=== PATIENT | female | born 1970 | race Caucasian/White ===

== ENCOUNTER 2018-03-19 14:28 | Emergency (ER) | payer OTHER ==
[~2018-03-19] VITALS: Ht 154.9 cm; Wt 70.8 kg
[~2018-03-19 14:28] MED LIST: 'XANAX1 MG PO; CYCLOBENZAPRINE10 MG PO; FLEXERIL10 MG PO; HUMALOG100 UNIT/1 SQ; LANTUS100 U/ML SC; NEURONTIN300 MG PO; NOVAPLUS V0.09 MG/Ac IH; PREDNISONE10 MG PO; QUETIAPINE FUM100 M3 PO; SERTRALINE HYD100 MG PO; VIBRAMYCIN100 MG PO; VICODIN 5/500 505 MG PO
[2018-03-19] MEDS ORDERED: NAPROSYN500 MG PO (14:59)
[2018-03-19] MEDS ORDERED: CAPTOPRIL25 MG PO (16:11)
== END 2018-03-19 17:15 | disposition home or self-care (01) ==
LOC: ED 14:28
DX: S93.601A Unspecified sprain of right foot, initial encounter (principal); R03.0 Elevated blood-pressure reading, without diagnosis of hypertension; Z79.4 Long term (current) use of insulin; Z79.899 Other long term (current) drug therapy; Z88.1 Allergy status to other antibiotic agents; Z88.8 Allergy status to other drugs, medicaments and biological substances; X50.1XXA Overexertion from prolonged static or awkward postures, initial encounter; Y93.89 Activity, other specified; Y92.89 Other specified places as the place of occurrence of the external cause; Y99.9 Unspecified external cause status

== ENCOUNTER 2018-04-18 13:02 | Emergency (ER) | payer OTHER ==
[~2018-04-18] VITALS: Wt 70.8 kg
[~2018-04-18 13:02] MED LIST changes: +CAPTOPRIL25 MG PO; +NAPROSYN500 MG PO
[2018-04-18] MEDS ORDERED: MYCOLOG CREAM 115 GM T (13:56)
[2018-04-18] MEDS ORDERED: NORCO 5-325 TA1 EACH PO (13:56)
[2018-04-18] MEDS ORDERED: FLUCONAZOLE100 MG PO (13:56)
== END 2018-04-18 14:22 | disposition home or self-care (01) ==
LOC: ED 13:02
DX: B37.2 Candidiasis of skin and nail (principal); F17.200 Nicotine dependence, unspecified, uncomplicated; Z88.1 Allergy status to other antibiotic agents; Z88.8 Allergy status to other drugs, medicaments and biological substances; Z79.899 Other long term (current) drug therapy; Z79.4 Long term (current) use of insulin

== ENCOUNTER 2018-04-22 09:32 | Emergency (ER) | payer OTHER ==
[~2018-04-22] VITALS: Ht 154.9 cm; Wt 70.8 kg
[~2018-04-22 09:32] MED LIST changes: +FLUCONAZOLE100 MG PO; +MYCOLOG CREAM 115 GM T; +NORCO 5-325 TA1 EACH PO
[2018-04-22] MEDS ORDERED: MYCOLOG CREAM 115 GM T (09:48)
[2018-04-22] MEDS ORDERED: NORCO 10-325 T1 EACH PO (10:23)
== END 2018-04-22 10:45 | disposition home or self-care (01) ==
LOC: ED 09:32
DX: B37.2 Candidiasis of skin and nail (principal); Z88.8 Allergy status to other drugs, medicaments and biological substances; Z79.899 Other long term (current) drug therapy

== ENCOUNTER 2018-05-30 18:59 | Emergency (ER) | payer OTHER ==
[~2018-05-30] VITALS: Ht 152.4 cm; Wt 72.6 kg
[~2018-05-30 18:59] MED LIST changes: +LANTUS SOL100 UNIT/1 SQ; -LANTUS100 U/ML SC; +NORCO 10-325 T1 EACH PO
[2018-05-30 19:55] LABS: BASO % 0.3 % (0.0-1.0); EOS # 0.3 10*3/uL (0.0-0.4); EOS % 2.7 % (1.0-4.0); HEMATOCRIT 31.3 % (37.0-47.0); HEMOGLOBIN 9.8 g/dl (12.0-16.0); LYMPH # 1.8 10*3/uL (1.3-4.4); LYMPH % 18.2 % (27.0-41.0); MEAN CELL VOLUME 87.9 fl (81.0-99.0); MEAN CORPUSCULAR HGB 27.5 pg (27.0-31.0); MEAN CORPUSCULAR HGB CONC 31.3 g/dl (33.0-37.0); MEAN PLATELET VOLUME 8.9 fl (9.6-12.3); MONO # 0.5 10*3/uL (0.1-1.0); MONO % 5.3 % (3.0-9.0); NEUT # 7.2 10*3/uL (2.3-7.9); NEUT % 73.3 % (47.0-73.0); PLATELET COUNT AUTOMATED 439 10*3/uL (130-400); RED BLOOD COUNT 3.56 10*6/uL (4.10-5.10); RED CELL DISTRI WIDTH 14.4 % (0-14.5); WHITE BLOOD COUNT 9.8 10*3/uL (4.8-10.8)
[2018-05-30 20:10] LABS: ALBUMIN 2.2 gm/dl (3.1-4.5); ALKALINE PHOSPHATASE 212 U/L (45-117); BUN 9 mg/dl (7-24); CHLORIDE 97 mmol/L (98-107); CREATININE 0.85 mg/dL (0.55-1.02); POTASSIUM 3.9 mmol/L (3.5-5.1); SGOT/AST 8 IU/L (3-35); SGPT/ALT 8 U/L (12-78); SODIUM 136 mmol/L (136-145); TOTAL PROTEIN 7.3 gm/dL (6.4-8.2)
[2018-05-30] MEDS ORDERED: SEPTDS PO (20:37)
[2018-05-30] MEDS ORDERED: CLINDAMYCIN HC300 MG PO (20:39)
[2018-05-30] MEDS ORDERED: Bactroban Oint22 GM T (20:48)
[2018-05-30] MEDS ORDERED: HIBICLENS118 ML T (20:48)
[2018-05-30] MEDS ORDERED: NORCO 5-325 TA1 EACH PO (21:16)
[2018-05-30] MEDS ORDERED: DIFLUCAN150 MG PO (21:19)
== END 2018-05-30 22:40 | disposition home or self-care (01) ==
LOC: ED 18:59
PROVIDERS: Nurse Practitioner
DX: L02.214 Cutaneous abscess of groin (principal); Z79.899 Other long term (current) drug therapy; Z88.1 Allergy status to other antibiotic agents; Z86.14 Personal history of Methicillin resistant Staphylococcus aureus infection

== ENCOUNTER 2018-06-04 18:06 | Emergency (ER) | payer OTHER ==
[~2018-06-04] VITALS: Ht 152.4 cm; Wt 73.5 kg
[~2018-06-04 18:06] MED LIST changes: +Bactroban Oint22 GM T; +CLINDAMYCIN HC300 MG PO; +DIFLUCAN150 MG PO; +HIBICLENS118 ML T; +SEPTDS PO
[2018-06-04 19:08] LABS: BASO % 0.6 % (0.0-1.0); EOS # 0.3 10*3/uL (0.0-0.4); EOS % 3.6 % (1.0-4.0); HEMATOCRIT 34.1 % (37.0-47.0); HEMOGLOBIN 10.6 g/dl (12.0-16.0); LYMPH # 1.8 10*3/uL (1.3-4.4); LYMPH % 25.7 % (27.0-41.0); MEAN CELL VOLUME 87.9 fl (81.0-99.0); MEAN CORPUSCULAR HGB 27.3 pg (27.0-31.0); MEAN CORPUSCULAR HGB CONC 31.1 g/dl (33.0-37.0); MEAN PLATELET VOLUME 8.9 fl (9.6-12.3); MONO # 0.5 10*3/uL (0.1-1.0); MONO % 6.7 % (3.0-9.0); NEUT # 4.5 10*3/uL (2.3-7.9); NEUT % 63.1 % (47.0-73.0); PLATELET COUNT AUTOMATED 383 10*3/uL (130-400); RED BLOOD COUNT 3.88 10*6/uL (4.10-5.10); RED CELL DISTRI WIDTH 14.6 % (0-14.5); WHITE BLOOD COUNT 7.1 10*3/uL (4.8-10.8)
[2018-06-04 19:26] LABS: ALBUMIN 2.5 gm/dl (3.1-4.5); ALKALINE PHOSPHATASE 523 U/L (45-117); BUN 7 mg/dl (7-24); CHLORIDE 103 mmol/L (98-107); CREATININE 1.31 mg/dL (0.55-1.02); POTASSIUM 3.8 mmol/L (3.5-5.1); SGOT/AST 9 IU/L (3-35); SGPT/ALT 21 U/L (12-78); SODIUM 141 mmol/L (136-145); TOTAL PROTEIN 7.7 gm/dL (6.4-8.2)
[2018-06-04 19:27] LABS: TROPONIN I < 0.015 ng/ml (<0.045)
[2018-06-04] MEDS ORDERED: SEPTDS PO (20:37)
[2018-06-04] MEDS ORDERED: CIPRO500 MG PO (20:37)
[2018-06-04] MEDS ORDERED: DIFLUCAN150 MG PO (20:37)
[2018-06-04] MEDS ORDERED: NORCO 5-325 TA1 EACH PO (20:39)
== END 2018-06-04 21:09 | disposition left against medical advice (07) ==
LOC: ED 18:06
PROVIDERS: Nurse Practitioner Family
DX: L02.214 Cutaneous abscess of groin (principal); Z88.1 Allergy status to other antibiotic agents; Z79.899 Other long term (current) drug therapy

== ENCOUNTER 2018-06-08 16:48 | Emergency (ER) | payer OTHER ==
[~2018-06-08] VITALS: Ht 154.9 cm; Wt 73.5 kg
[~2018-06-08 16:48] MED LIST changes: +CIPRO500 MG PO
[2018-06-08 17:30] LABS: BASO # 0.1 10*3/uL (0.0-0.1); BASO % 0.6 % (0.0-1.0); EOS # 0.3 10*3/uL (0.0-0.4); EOS % 2.8 % (1.0-4.0); HEMATOCRIT 34.4 % (37.0-47.0); HEMOGLOBIN 10.7 g/dl (12.0-16.0); LYMPH # 2.3 10*3/uL (1.3-4.4); LYMPH % 25.6 % (27.0-41.0); MEAN CELL VOLUME 86.4 fl (81.0-99.0); MEAN CORPUSCULAR HGB 26.9 pg (27.0-31.0); MEAN CORPUSCULAR HGB CONC 31.1 g/dl (33.0-37.0); MEAN PLATELET VOLUME 8.7 fl (9.6-12.3); MONO # 0.5 10*3/uL (0.1-1.0); NEUT # 5.9 10*3/uL (2.3-7.9); NEUT % 65.6 % (47.0-73.0); PLATELET COUNT AUTOMATED 335 10*3/uL (130-400); RED BLOOD COUNT 3.98 10*6/uL (4.10-5.10); RED CELL DISTRI WIDTH 14.1 % (0-14.5)
[2018-06-08 17:46] LABS: ALBUMIN 2.9 gm/dl (3.1-4.5); ALKALINE PHOSPHATASE 320 U/L (45-117); BUN 9 mg/dl (7-24); CHLORIDE 93 mmol/L (98-107); CREATININE 0.96 mg/dL (0.55-1.02); POTASSIUM 4.1 mmol/L (3.5-5.1); SGOT/AST 9 IU/L (3-35); SGPT/ALT 12 U/L (12-78); SODIUM 130 mmol/L (136-145); TOTAL PROTEIN 8.2 gm/dL (6.4-8.2)
== END 2018-06-08 22:06 | disposition short-term general hospital (02) ==
LOC: ED 16:48
PROVIDERS: Nurse Practitioner
DX: L02.214 Cutaneous abscess of groin (principal); T81.4XXD Infection following a procedure, subsequent encounter; L73.2 Hidradenitis suppurativa; Z79.4 Long term (current) use of insulin; Z79.899 Other long term (current) drug therapy; Z88.1 Allergy status to other antibiotic agents; Y92.9 Unspecified place or not applicable

== ENCOUNTER 2018-07-07 18:56 | Emergency (ER) | payer OTHER ==
[~2018-07-07] VITALS: Ht 154.9 cm; Wt 71.7 kg
[2018-07-07] MEDS ORDERED: CYCLOBENZAPRINE10 MG PO (19:10)
[2018-07-07] MEDS ORDERED: REMERON30 M1 PO (19:10)
[2018-07-07] MEDS ORDERED: PRILOSEC20 M1 PO (19:10)
[2018-07-07 19:47] LABS: BASO # 0.1 10*3/uL (0.0-0.1); BASO % 0.7 % (0.0-1.0); EOS # 0.4 10*3/uL (0.0-0.4); HEMATOCRIT 37.3 % (37.0-47.0); HEMOGLOBIN 11.9 g/dl (12.0-16.0); LYMPH # 2.8 10*3/uL (1.3-4.4); LYMPH % 33.6 % (27.0-41.0); MEAN CELL VOLUME 86.3 fl (81.0-99.0); MEAN CORPUSCULAR HGB 27.5 pg (27.0-31.0); MEAN CORPUSCULAR HGB CONC 31.9 g/dl (33.0-37.0); MONO # 0.3 10*3/uL (0.1-1.0); MONO % 3.9 % (3.0-9.0); NEUT # 4.6 10*3/uL (2.3-7.9); NEUT % 56.1 % (47.0-73.0); PLATELET COUNT AUTOMATED 406 10*3/uL (130-400); RED BLOOD COUNT 4.32 10*6/uL (4.10-5.10); RED CELL DISTRI WIDTH 15.5 % (0-14.5); WHITE BLOOD COUNT 8.3 10*3/uL (4.8-10.8)
[2018-07-07 20:00] LABS: ALBUMIN 3.4 gm/dl (3.1-4.5); ALKALINE PHOSPHATASE 255 U/L (45-117); BUN 18 mg/dl (7-24); CHLORIDE 97 mmol/L (98-107); CREATININE 0.82 mg/dL (0.55-1.02); POTASSIUM 4.1 mmol/L (3.5-5.1); SGOT/AST 13 IU/L (3-35); SGPT/ALT 28 U/L (12-78); SODIUM 133 mmol/L (136-145); TOTAL PROTEIN 8.7 gm/dL (6.4-8.2)
[2018-07-07] MEDS ORDERED: DIFLUCAN150 MG PO (20:30)
[2018-07-07] MEDS ORDERED: KEFLEX500 M1 PO (20:30)
[2018-07-07] MEDS ORDERED: NYSTATIN1 EAC2 MC (20:30)
== END 2018-07-07 20:36 | disposition home or self-care (01) ==
LOC: ED 18:56
PROVIDERS: Nurse Practitioner Family
DX: E10.621 Type 1 diabetes mellitus with foot ulcer (principal); E10.43 Type 1 diabetes mellitus with diabetic autonomic (poly)neuropathy; L97.419 Non-pressure chronic ulcer of right heel and midfoot with unspecified severity; K31.84 Gastroparesis; L73.2 Hidradenitis suppurativa; N76.2 Acute vulvitis; Z79.899 Other long term (current) drug therapy; Z88.1 Allergy status to other antibiotic agents

== ENCOUNTER 2018-11-03 18:38 | Inpatient (IN) | payer OTHER ==
[~2018-11-03] VITALS: Ht 149.9 cm; Wt 76.2 kg
[2018-11-03 18:38] VITALS: BP 203/127
[~2018-11-03 18:38] MED LIST changes: +CLEOCIN150 MG PO; +DOXYCYCLINE100 M3 PO; +HYDROCODONE-AC1 EAC1 PO; +KEFLEX500 M1 PO; +MISOPROST200 MCG PO; +NAFCILLIN2 GM IJ; +NYSTATIN1 EAC2 MC; +OMEPRAZOLE40 MG PO; +ONDANSETRON HYDR4 MG PO; +PRILOSEC20 M1 PO; +QUETIAPINE FUM200 M3 PO; +REGLAN10 M1 PO; +REMERON30 M1 PO; +RIZATRIPTAN10 MG PO; +XARELTO1 EACH PO
[2018-11-03 21:44] LABS: BASO % 0.5 % (0.0-1.0); EOS # 0.6 10*3/uL (0.0-0.4); EOS % 7.2 % (1.0-4.0); HEMATOCRIT 33.9 % (37.0-47.0); HEMOGLOBIN 10.8 g/dl (12.0-16.0); LYMPH # 2.8 10*3/uL (1.3-4.4); MEAN CELL VOLUME 89.9 fl (81.0-99.0); MEAN CORPUSCULAR HGB 28.6 pg (27.0-31.0); MEAN CORPUSCULAR HGB CONC 31.9 g/dl (33.0-37.0); MEAN PLATELET VOLUME 8.7 fl (9.6-12.3); MONO # 0.4 10*3/uL (0.1-1.0); MONO % 4.9 % (3.0-9.0); NEUT # 4.3 10*3/uL (2.3-7.9); NEUT % 52.9 % (47.0-73.0); PLATELET COUNT AUTOMATED 294 10*3/uL (130-400); RED BLOOD COUNT 3.77 10*6/uL (4.10-5.10); RED CELL DISTRI WIDTH 14.7 % (0-14.5); WHITE BLOOD COUNT 8.2 10*3/uL (4.8-10.8)
[2018-11-03 23:01] VITALS: BP 174/98
[2018-11-04 00:11] VITALS: BP 148/88
[2018-11-04 00:22] VITALS: BP 140/84
[2018-11-04 07:02] LABS: BASO % 0.6 % (0.0-1.0); EOS # 0.6 10*3/uL (0.0-0.4); EOS % 8.2 % (1.0-4.0); HEMATOCRIT 32.8 % (37.0-47.0); HEMOGLOBIN 10.3 g/dl (12.0-16.0); LYMPH # 2.9 10*3/uL (1.3-4.4); LYMPH % 41.3 % (27.0-41.0); MEAN CELL VOLUME 91.4 fl (81.0-99.0); MEAN CORPUSCULAR HGB 28.7 pg (27.0-31.0); MEAN CORPUSCULAR HGB CONC 31.4 g/dl (33.0-37.0); MEAN PLATELET VOLUME 9.3 fl (9.6-12.3); MONO # 0.4 10*3/uL (0.1-1.0); MONO % 5.5 % (3.0-9.0); NEUT # 3.1 10*3/uL (2.3-7.9); PLATELET COUNT AUTOMATED 315 10*3/uL (130-400); RED BLOOD COUNT 3.59 10*6/uL (4.10-5.10); RED CELL DISTRI WIDTH 14.7 % (0-14.5); WHITE BLOOD COUNT 7.1 10*3/uL (4.8-10.8)
[2018-11-04 07:07] LABS: INTERNATIONAL NORM RATIO 0.9 (2.0-3.5)
[2018-11-04 07:41] LABS: ALBUMIN 2.8 gm/dl (3.1-4.5); BUN 8 mg/dl (7-24); CHLORIDE 106 mmol/L (98-107); CREATININE 0.71 mg/dL (0.55-1.02); PHOSPHOROUS 4.8 mg/dL (2.5-4.9); POTASSIUM 3.4 mmol/L (3.5-5.1); SGOT/AST 48 IU/L (3-35); SGPT/ALT 58 U/L (12-78); SODIUM 141 mmol/L (136-145)
[2018-11-04 07:43] LABS: ALKALINE PHOSPHATASE 399 U/L (45-117); TOTAL PROTEIN 6.5 gm/dL (6.4-8.2)
[2018-11-04 08:00] VITALS: BP 150/90
[2018-11-04 08:02] LABS: ACT PARTIAL THROMBO TIME 34.1 SECONDS (20.8-31.5)
[2018-11-04 12:00] VITALS: BP 145/71
[2018-11-04] MEDS ORDERED: HYDROCODONE-AC1 EAC2 PO (15:55)
[2018-11-04] MEDS ORDERED: AMINOPHYLLIN200 MG PO (15:55)
[2018-11-04] MEDS ORDERED: XARELTO1 EACH PO (15:57)
[2018-11-04] MEDS ORDERED: XARE20MG PO (15:58)
[2018-11-05 14:04] LABS: ANTICARDIOLIPIN AB, IGG, QN <9 GPL U/mL (0-14); ANTICARDIOLIPIN AB, IGM, QN <9 MPL U/mL (0-12); CARDIOLIPIN AB IGA 161836 21 APL U/mL (0-11)
[2018-11-06 01:09] LABS: PTT-LA 38.7 sec (0.0-51.9)
[2018-11-06 02:05] LABS: ANTI-THROMBIN III ACTIVITY 137 % (75-135); PROTEIN S, FREE 80 % (57-157); PROTEIN S, TOTAL 86 % (60-150)
[2018-11-06 08:10] LABS: LUPUS DRVVT 102.3 sec (0.0-47.0)
[2018-11-06 11:04] LABS: LUPUS REFLEX INTERPRETATION Comment: (.)
== END 2018-11-04 17:00 | disposition home health service (06) | DRG 299 ==
LOC: ED 18:38 → EDHOLD 23:31 → 4E 23:31
PROVIDERS: Emergency Medicine Emergency Medical Services; Internal Medicine; Student in an Organized Health Care Education/Training Program
DX: I82.621 Acute embolism and thrombosis of deep veins of right upper extremity (principal); J15.211 Pneumonia due to Methicillin susceptible Staphylococcus aureus; I82.622 Acute embolism and thrombosis of deep veins of left upper extremity; I16.0 Hypertensive urgency; L97.511 Non-pressure chronic ulcer of other part of right foot limited to breakdown of skin; N80.9 Endometriosis, unspecified; R74.0 Nonspecific elevation of levels of transaminase and lactic acid dehydrogenase [LDH]; E11.51 Type 2 diabetes mellitus with diabetic peripheral angiopathy without gangrene; E11.621 Type 2 diabetes mellitus with foot ulcer; K21.9 Gastro-esophageal reflux disease without esophagitis; F17.210 Nicotine dependence, cigarettes, uncomplicated; R74.8 Abnormal levels of other serum enzymes; E11.65 Type 2 diabetes mellitus with hyperglycemia; E66.09 Other obesity due to excess calories; Z71.6 Tobacco abuse counseling; Z88.1 Allergy status to other antibiotic agents; Z88.6 Allergy status to analgesic agent; Z88.8 Allergy status to other drugs, medicaments and biological substances; Z87.01 Personal history of pneumonia (recurrent); Z90.49 Acquired absence of other specified parts of digestive tract; Z90.710 Acquired absence of both cervix and uterus; Z82.49 Family history of ischemic heart disease and other diseases of the circulatory system; Z79.4 Long term (current) use of insulin; Z79.899 Other long term (current) drug therapy

== ENCOUNTER → 2018-11-10 | Outpatient (CLI) | payer OTHER ==
[~2018-11-10] MED LIST changes: +AMINOPHYLLIN200 MG PO; +HYDROCODONE-AC1 EAC2 PO; +XARE20MG PO
== END | disposition home or self-care (01) ==
LOC: RESCLI 02:26
DX: F33.9 Major depressive disorder, recurrent, unspecified (principal); I82.623 Acute embolism and thrombosis of deep veins of upper extremity, bilateral; I10 Essential (primary) hypertension; E11.8 Type 2 diabetes mellitus with unspecified complications; F41.9 Anxiety disorder, unspecified; G89.29 Other chronic pain; K21.0 Gastro-esophageal reflux disease with esophagitis; M54.9 Dorsalgia, unspecified; F17.210 Nicotine dependence, cigarettes, uncomplicated; K31.84 Gastroparesis; J43.9 Emphysema, unspecified; J18.1 Lobar pneumonia, unspecified organism; G43.919 Migraine, unspecified, intractable, without status migrainosus; Z76.89 Persons encountering health services in other specified circumstances; Z71.6 Tobacco abuse counseling; Z79.4 Long term (current) use of insulin; Z79.899 Other long term (current) drug therapy; Z88.8 Allergy status to other drugs, medicaments and biological substances

== ENCOUNTER 2018-12-16 12:49 | Inpatient (IN) | payer OTHER ==
[~2018-12-16] VITALS: Ht 149.9 cm; Wt 76.9 kg
[2018-12-16 12:49] VITALS: BP 155/82
[2018-12-16 13:46] LABS: BILIRUBIN NEGATIVE (NEGATIVE); BLOOD TRACE-LYSED (NEGATIVE); CLARITY SL CLOUDY (CLEAR); COLOR YELLOW (YELLOW); GLUCOSE 3+ (NEGATIVE); KETONE NEGATIVE (NEGATIVE); LEUKO ESTERASE NEGATIVE (NEGATIVE); NITRITE POSITIVE (NEGATIVE); SPECIFIC GRAVITY <= 1.005 (1.005-1.030); UROBILINOGEN 0.2 E.U./dl (0.2-1.0)
[2018-12-16 13:46] LABS: BASO # 0.1 10*3/uL (0.0-0.1); BASO % 0.5 % (0.0-1.0); EOS # 0.2 10*3/uL (0.0-0.4); EOS % 2.2 % (1.0-4.0); HEMATOCRIT 36.1 % (37.0-47.0); HEMOGLOBIN 11.9 g/dl (12.0-16.0); LYMPH # 2.1 10*3/uL (1.3-4.4); LYMPH % 18.8 % (27.0-41.0); MEAN CELL VOLUME 87.8 fl (81.0-99.0); MEAN PLATELET VOLUME 9.3 fl (9.6-12.3); MONO # 0.5 10*3/uL (0.1-1.0); MONO % 4.9 % (3.0-9.0); NEUT # 7.9 10*3/uL (2.3-7.9); NEUT % 72.7 % (47.0-73.0); PLATELET COUNT AUTOMATED 400 10*3/uL (130-400); RED BLOOD COUNT 4.11 10*6/uL (4.10-5.10); RED CELL DISTRI WIDTH 13.2 % (0-14.5); WHITE BLOOD COUNT 10.9 10*3/uL (4.8-10.8)
[2018-12-16 13:55] LABS: ACT PARTIAL THROMBO TIME 23.4 SECONDS (20.8-31.5)
[2018-12-16 14:01] LABS: BACTERIA 2+; WBC 21-30 wbc/hpf (0-5)
[2018-12-16 14:03] LABS: ALKALINE PHOSPHATASE 471 U/L (45-117); BUN 9 mg/dl (7-24); CHLORIDE 91 mmol/L (98-107); CREATININE 1.16 mg/dL (0.55-1.02); POTASSIUM 4.1 mmol/L (3.5-5.1); SGOT/AST 7 IU/L (3-35); SGPT/ALT 32 U/L (12-78); SODIUM 128 mmol/L (136-145); TOTAL PROTEIN 8.4 gm/dL (6.4-8.2)
[2018-12-16 14:12] LABS: TROPONIN I < 0.015 ng/ml (<0.045)
--- NOTE | 2018-12-16 14:23 | NUR ---
CRITICAL RESULT LACTIC 3.2 DR NOLASCO NOTIFIED.
[2018-12-16 15:10] VITALS: BP 148/56
[2018-12-16] MEDS ORDERED: XARELTO20 M1 PO (15:13)
--- NOTE | 2018-12-16 15:30 | NUR ---
A 48, admitted to 5E, under the services of ALEXANDER Fisher DO with a diagnosis of HYPONATREMIA, DM WITH HYPERGLYCEMIA. Chief complaint is PAIN. Patient arrived via ambulance from ER. Monitor applied. Initial assessment completed. Vital signs taken and recorded. ALEXANDER FISHER DO notified of admission to the unit. Orders received. See assessment for past medical history, medications and allergies. Patient and/or family oriented to unit. [address] visitation policy reviewed. Clothing/patient valuable form completed. WANTS FLU VACCINE. MICHELLE LEO
[2018-12-16] MEDS ORDERED: NORCO 5-325 TA1 EACH PO (15:40)
[2018-12-16] MEDS ORDERED: OMEPRAZOLE40 MG PO (15:41)
[2018-12-16 16:00] VITALS: BP 145/95
--- NOTE | 2018-12-16 16:10 | NUR ---
PTS HOME MEDICATION LIST UP TO DATE. DR MAGAÑA INFORMED
[2018-12-16 16:40] LABS: BUN 9 mg/dl (7-24); CHLORIDE 95 mmol/L (98-107); CREATININE 1.02 mg/dL (0.55-1.02); POTASSIUM 4.3 mmol/L (3.5-5.1); SODIUM 130 mmol/L (136-145)
[2018-12-16 20:00] VITALS: BP 142/79
[2018-12-17] VITALS: BP 118/62
[2018-12-17 06:29] LABS: BASO % 0.4 % (0.0-1.0); EOS # 0.3 10*3/uL (0.0-0.4); EOS % 2.9 % (1.0-4.0); HEMATOCRIT 30.7 % (37.0-47.0); LYMPH # 1.9 10*3/uL (1.3-4.4); LYMPH % 19.9 % (27.0-41.0); MEAN CELL VOLUME 87.5 fl (81.0-99.0); MEAN CORPUSCULAR HGB 28.5 pg (27.0-31.0); MEAN CORPUSCULAR HGB CONC 32.6 g/dl (33.0-37.0); MEAN PLATELET VOLUME 9.6 fl (9.6-12.3); MONO # 0.6 10*3/uL (0.1-1.0); MONO % 6.2 % (3.0-9.0); NEUT # 6.5 10*3/uL (2.3-7.9); NEUT % 70.1 % (47.0-73.0); PLATELET COUNT AUTOMATED 366 10*3/uL (130-400); RED BLOOD COUNT 3.51 10*6/uL (4.10-5.10); RED CELL DISTRI WIDTH 13.5 % (0-14.5); WHITE BLOOD COUNT 9.3 10*3/uL (4.8-10.8)
[2018-12-17 06:58] LABS: ALBUMIN 2.3 gm/dl (3.1-4.5); ALKALINE PHOSPHATASE 788 U/L (45-117); BUN 8 mg/dl (7-24); CHLORIDE 100 mmol/L (98-107); CREATININE 0.83 mg/dL (0.55-1.02); FREE T4 1.23 ng/dl (0.76-1.46); GAMMA GLUTAMYL TRANSPEPTIDASE 571 U/L (5-55); PHOSPHOROUS 2.8 mg/dL (2.5-4.9); POTASSIUM 3.9 mmol/L (3.5-5.1); SGOT/AST 54 IU/L (3-35); SGPT/ALT 95 U/L (12-78); SODIUM 134 mmol/L (136-145); TOTAL PROTEIN 7.1 gm/dL (6.4-8.2)
[2018-12-17 12:00] VITALS: BP 127/65
[2018-12-17 12:15] LABS: URINE AMPHETAMINES < 1000 (1000ng/ml); URINE BARBITURATES < 200 (200ng/ml); URINE BENZODIAZEPINES > 200 (200ng/ml); URINE CANNABINOIDS (THC) < 50 (50ng/ml); URINE COCAINE < 300 (300ng/ml); URINE METHADONE < 300 (300ng/ml); URINE OPIATES < 300 (300ng/ml)
[2018-12-17 12:16] LABS: URINE PHENCYCLIDINE < 25 (25ng/ml)
--- NOTE | 2018-12-17 12:50 | NUR ---
DANNIELLEBROOKE [id number] Please refer to the physician's history and physical for past medical history, comorbid conditions, and allergies. Diagnosis: HYPONATREMIA DIABETES MELLITUS W/ HYPERGLYCEMIA Sven Score: 22,LOW OR NO RISK WOUND DESCRIPTIONS: Location of the wound: right lateral aspect of heel Type of wound: Thickness: Full Size: 1.1cm x 0.6cm x 0.1cm Tunneling: none Undermining: none Sinus Tract: none Presence of Exudate: Serous Amount: Light Color: Yellow Odor: None Periwound Skin Appearance: Wound edges: approximated Pain (associated with wound): none at time of assessment How does patient state this happened? pt stated she wants to continue caring for this area at home she states she gets supplies and cares for it at home she states she is using bactroban at home. Surface the patient is resting on: Isoflex SKIN PREVENTION RECOMMENDATION: 1. Pressure redistribution support surface as appropriate 2. Elevate heels 3. Remove boots/TEDS every shift and reapply 4. Head of bed 30 degrees as tolerated 5. Assess nutrition and hydration 6. Manage moisture 7. Avoid the use of containment devices while in bed 8. Use absorptive products on surfaces limit layers of linens on bed 9. Turn and reposition every 1-2 hours in bed and every 1 hour in chair as tolerated 10. Weight shifts every 15 minutes while up in chair 11. Offloading with pillows or device to keep heels elevated off bed 12. Monitor skin at least every shift 13. Inspect under medical devices twice a day WOUND TREATMENT RECOMMENDATIONS: Full thickness guidelines: Cleanse right lateral aspect of heel with nss and apply sureprep around the wound therahoney to wound bed and cover with optifoam gentle. Consult podiatry for possible debridement. D/C bactroban ointment. Heel raiser pro boots while in bed.
--- NOTE | 2018-12-17 13:08 | NUR ---
Spoke with Yue HENSLEY regarding wound care recommendations.
--- NOTE | 2018-12-17 13:28 | NUR ---
Cloth Carrier in to talk to patient. Patient states lives at HOME with . There are NO steps in the home. Physician: [facility]acy: [facility] Home health services: NONE Patient's level of ADLs: INDEPENDENT Patient has working utilities: YES DME: NONE Follow-up physician's appointment after d/c: WILL BE MADE BY HOSPITALIST NURSE DIRECTOR ON DISCHARGE Does patient want to access PORTAL?: NO Discharge plan PT LIVES AT HOME WITH AND IS INDEPENDENT IN CARE. WILL HAVE NO NEEDS AT HOME AT THE PRESENT TIME. MAY NEED RIDE HOME PER PT. WILL CONTINUE TO FOLLOW. . TOM CRUZ
[2018-12-17 16:00] VITALS: BP 147/83
[2018-12-17 20:00] VITALS: BP 140/70
--- NOTE | 2018-12-17 22:00 | NUR ---
PATIENT GIVEN NORCO PER PT REQUEST FOR BACK PAIN RATED 7/10 AND DESCRIBED A SHARP, STABBING PAIN.
--- NOTE | 2018-12-17 23:00 | NUR ---
NORCO INEFFECTIVE, IV DILAUDID GIVEN PER PT REQUEST FOR BACK PAIN STILL RATED A 7/10, CALL LIGHT WITHIN REACH, WILL CONTINUE TO MONITOR AND REASSESS.
[2018-12-18] VITALS: BP 128/74
--- NOTE | 2018-12-18 | NUR ---
MEDICATION EFFECTIVE, PATIENT RESTING COMFORTABLY IN BED AT THIS TIME, CALL LIGHT WITHIN REACH.
--- NOTE | 2018-12-18 04:04 | NUR ---
GIVEN NORCO PER PT REQUEST FOR RIGHT SIDE BACK PAIN RATED 8/10 AND DESCRIBED A SHOOTING, SHARP PAIN, WILL CONTINUE TO MONITOR AND REASSESS.
--- NOTE | 2018-12-18 06:05 | NUR ---
NORCO WAS NOT EFFECTIVE PER PT. PATIENT REQUESTING IV DILAUDID AT THIS TIME FOR RIGHT BACK PAIN RATED A 7/10 AND DESCRIBED A SHARP, STABBING PAIN. CALL LIGHT WITHIN REACH. WILL CONTINUE TO MONITOR AND REASSESS.
[2018-12-18 06:36] LABS: BASO # 0.1 10*3/uL (0.0-0.1); BASO % 0.5 % (0.0-1.0); EOS # 0.4 10*3/uL (0.0-0.4); EOS % 3.6 % (1.0-4.0); HEMATOCRIT 31.3 % (37.0-47.0); HEMOGLOBIN 9.9 g/dl (12.0-16.0); LYMPH # 2.6 10*3/uL (1.3-4.4); LYMPH % 25.8 % (27.0-41.0); MEAN CORPUSCULAR HGB 28.9 pg (27.0-31.0); MEAN CORPUSCULAR HGB CONC 31.6 g/dl (33.0-37.0); MEAN PLATELET VOLUME 9.6 fl (9.6-12.3); MONO # 0.6 10*3/uL (0.1-1.0); MONO % 6.5 % (3.0-9.0); NEUT # 6.2 10*3/uL (2.3-7.9); NEUT % 62.2 % (47.0-73.0); PLATELET COUNT AUTOMATED 413 10*3/uL (130-400); RED BLOOD COUNT 3.43 10*6/uL (4.10-5.10); RED CELL DISTRI WIDTH 13.8 % (0-14.5); WHITE BLOOD COUNT 9.9 10*3/uL (4.8-10.8)
[2018-12-18 06:38] LABS: MEAN CELL VOLUME 91.3 fl (81.0-99.0)
[2018-12-18 06:45] LABS: ALBUMIN 2.5 gm/dl (3.1-4.5); BUN 11 mg/dl (7-24); CHLORIDE 106 mmol/L (98-107); POTASSIUM 4.1 mmol/L (3.5-5.1); SGPT/ALT 70 U/L (12-78); SODIUM 140 mmol/L (136-145)
[2018-12-18 06:47] LABS: ALKALINE PHOSPHATASE 662 U/L (45-117); SGOT/AST 32 IU/L (3-35); TOTAL PROTEIN 6.9 gm/dL (6.4-8.2)
[2018-12-18 12:00] VITALS: BP 144/90
[2018-12-18 16:00] VITALS: BP 110/73
--- NOTE | 2018-12-18 16:43 | NUR ---
PATIENT REQUESTED AND RECIEVED PRN NORCO AND ZOFRAN FOR PAIN AND NAUSEA. PAIN IS RATED AN 8.5 AND LOCATED IN ABDOMEN AREA. WILL MONITOR FOR EFFECTIVENESS.
[2018-12-18 20:00] VITALS: BP 147/93
[2018-12-19] VITALS: BP 109/71
[2018-12-19 06:07] LABS: BASO # 0.1 10*3/uL (0.0-0.1); BASO % 0.6 % (0.0-1.0); EOS # 0.4 10*3/uL (0.0-0.4); HEMATOCRIT 33.5 % (37.0-47.0); HEMOGLOBIN 10.6 g/dl (12.0-16.0); LYMPH # 2.6 10*3/uL (1.3-4.4); LYMPH % 24.4 % (27.0-41.0); MEAN CELL VOLUME 90.3 fl (81.0-99.0); MEAN CORPUSCULAR HGB 28.6 pg (27.0-31.0); MEAN CORPUSCULAR HGB CONC 31.6 g/dl (33.0-37.0); MEAN PLATELET VOLUME 9.3 fl (9.6-12.3); MONO # 0.6 10*3/uL (0.1-1.0); MONO % 5.6 % (3.0-9.0); NEUT # 6.9 10*3/uL (2.3-7.9); NEUT % 64.5 % (47.0-73.0); PLATELET COUNT AUTOMATED 447 10*3/uL (130-400); RED BLOOD COUNT 3.71 10*6/uL (4.10-5.10); RED CELL DISTRI WIDTH 13.8 % (0-14.5); WHITE BLOOD COUNT 10.7 10*3/uL (4.8-10.8)
[2018-12-19 06:31] LABS: BUN 12 mg/dl (7-24); CHLORIDE 107 mmol/L (98-107); CREATININE 0.65 mg/dL (0.55-1.02); POTASSIUM 4.4 mmol/L (3.5-5.1); SODIUM 141 mmol/L (136-145)
--- NOTE | 2018-12-19 07:40 | NUR ---
DR MCGRATH MADE AWARE OF BLOOD CULTURE FROM 12/16/18 POSITIVE FOR ENTERROBACTER AUROGENES, WHICH IS SENSITIVE TO MERREM THAT PT IS CURRENTLY ON.
[2018-12-19 08:00] VITALS: BP 137/79
--- NOTE | 2018-12-19 08:15 | NUR ---
PT HAS HAD CALL LIGHT ON 2 TIMES SINCE 0700, STATING SHE NEEDS HER DILAUDID AND ZOFRAN. INFORMED PT HER PAIN MEDICATION IS NOT DUE UNTILL 0900.
--- NOTE | 2018-12-19 08:40 | NUR ---
PT CALLING OUT AGAIN REGARDING IV DILAUDID, INFORMED PT AGAIN THAT HER MEDICATION IS NOT DUE UNTIL 0900.
--- NOTE | 2018-12-19 09:10 | NUR ---
MEDICATED WITH DILAUDID PER PRN ORDER FOR COMPLAINTS OF RIGHT LEG, ARM, AND RIGHT FLANK PAIN. PT RATES PAIN 10/10 WILL MONITOR FOR EFFECTIVENESS.
--- NOTE | 2018-12-19 11:38 | NUR ---
MEDICATED WITH NORCO FOR COMPLAINTS OF RIGHT LEG, RIGHT FLANK, AND ARM PAIN; RATES PAIN 8/10. WILL MONITOR FOR EFFECTIVENESS.
[2018-12-19 12:00] VITALS: BP 142/88
--- NOTE | 2018-12-19 12:30 | NUR ---
PT MORE COMFORTABLE, SATTES EARLIER NORCO WAS EFFECTIVE.
[2018-12-19] MEDS ORDERED: NORCO 5-325 TA1 EACH PO (13:17)
[2018-12-19] MEDS ORDERED: VITAMIN D32000 UNI1 PO (13:17)
[2018-12-19] MEDS ORDERED: SEPTDS PO (13:17)
--- NOTE | 2018-12-19 14:08 | NUR ---
D/C PHOTOS NOT OBTAINED, PT HAS UNNA BOOT INTACT TO RIGHT LOWER EXTREMITY.
--- NOTE | 2018-12-19 14:11 | NUR ---
Discharge instructions reviewed with patient/family. Patient receptive and verbalizes understanding. Follow-up care arranged. Written instructions given to patient/family. IV site removed. Pt trasnported to [facility]. ISELA CASTRO
== END 2018-12-19 14:11 | disposition home or self-care (01) | DRG 871 ==
LOC: ED 12:49 → 5E 14:36 → EDHOLD 14:36 → 5E 14:45
PROVIDERS: Emergency Medicine; Internal Medicine; Registered Nurse; ADMIT Internal Medicine
DX: A41.9 Sepsis, unspecified organism (principal); N17.0 Acute kidney failure with tubular necrosis; N12 Tubulo-interstitial nephritis, not specified as acute or chronic; E87.2 Acidosis; E44.1 Mild protein-calorie malnutrition; E87.1 Hypo-osmolality and hyponatremia; Z88.9 Allergy status to unspecified drugs, medicaments and biological substances; Z79.4 Long term (current) use of insulin; K22.70 Barrett's esophagus without dysplasia; Z86.718 Personal history of other venous thrombosis and embolism; K21.9 Gastro-esophageal reflux disease without esophagitis; E66.9 Obesity, unspecified; Z90.49 Acquired absence of other specified parts of digestive tract; Z82.49 Family history of ischemic heart disease and other diseases of the circulatory system; Z80.8 Family history of malignant neoplasm of other organs or systems; Z83.3 Family history of diabetes mellitus; F41.9 Anxiety disorder, unspecified; G89.29 Other chronic pain; R65.20 Severe sepsis without septic shock; R11.10 Vomiting, unspecified; D64.9 Anemia, unspecified; E83.41 Hypermagnesemia; R31.29 Other microscopic hematuria; R81 Glycosuria; E66.09 Other obesity due to excess calories; Z68.34 Body mass index [BMI] 34.0-34.9, adult; F32.9 Major depressive disorder, single episode, unspecified; Z71.6 Tobacco abuse counseling; R15.9 Full incontinence of feces; E11.65 Type 2 diabetes mellitus with hyperglycemia; E11.51 Type 2 diabetes mellitus with diabetic peripheral angiopathy without gangrene

== ENCOUNTER 2019-07-29 13:53 | Inpatient (IN) | payer OTHER ==
[~2019-07-29] VITALS: Ht 149.8 cm; Wt 82.1 kg
--- NOTE | ~2019-07-29 | EKG ---
[place], [place] ELECTROCARDIOGRAM REPORT NAME: BROOKE SPICER UNIT #: [id number] ROOM: 425 DOCTOR: BHANU DRAFT REPORT BIRTHDATE: [birth year] [facility] Test Date: 2019-07-29 Test Time: 14:43:30 Pat Name: BROOKE SPICER Department: Room: 425 Gender: F Riveter Hand: Jaz Tracy : 1970 Requested By: ALEJANDRA HOFF Order Number: [id number] Reading MD: Ariel De Los Santos MD Measurements Intervals [place] Rate: 86 P: 23 AK: 178 QRS: 8 QRSD: 78 T: 58 QT: 371 QTc: 444 Interpretive Statements Sinus rhythm Low voltage, precordial leads Electronically Signed On 07-30-2019 7:56:00 PDT by Ariel De Los Santos MD CM:EKGRPT:ELECTROCARDIOGRAM REPORT [id number] ALEJANDRA DESIR DRAFT REPORT ALEJANDRA HOFF DO
[~2019-07-29 13:53] MED LIST changes: +VITAMIN D32000 UNI1 PO; +XARELTO20 M1 PO
[2019-07-29 14:02] VITALS: BP 151/71
[2019-07-29 14:56] LABS: BILIRUBIN NEGATIVE (NEGATIVE); BLOOD 1+ (NEGATIVE); CLARITY SL CLOUDY (CLEAR); COLOR YELLOW (YELLOW); GLUCOSE 3+ (NEGATIVE); KETONE NEGATIVE (NEGATIVE); LEUKO ESTERASE 1+ (NEGATIVE); NITRITE POSITIVE (NEGATIVE); SPECIFIC GRAVITY >= 1.030 (1.005-1.030); UROBILINOGEN 0.2 E.U./dl (0.2-1.0)
--- NOTE | 2019-07-29 14:59 | NUR ---
POX DROPS TO 90% AFTER FENTANYL DOSING. SUPPLEMENTAL O2 INITIATED AT 2L.
[2019-07-29 15:07] LABS: BACTERIA 2+; MUCOUS 1+; WBC 31-40 wbc/hpf (0-5); YEAST 3+
[2019-07-29 15:18] LABS: BASO % 0.4 % (0.0-1.0); EOS # 0.4 10*3/uL (0.0-0.4); EOS % 5.1 % (1.0-4.0); HEMATOCRIT 32.9 % (37.0-47.0); LYMPH # 1.8 10*3/uL (1.3-4.4); LYMPH % 23.3 % (27.0-41.0); MEAN CORPUSCULAR HGB 26.7 pg (27.0-31.0); MEAN CORPUSCULAR HGB CONC 30.4 g/dl (33.0-37.0); MEAN PLATELET VOLUME 9.7 fl (9.6-12.3); MONO # 0.5 10*3/uL (0.1-1.0); MONO % 6.3 % (3.0-9.0); NEUT # 5.1 10*3/uL (2.3-7.9); NEUT % 63.9 % (47.0-73.0); PLATELET COUNT AUTOMATED 321 10*3/uL (130-400); RED BLOOD COUNT 3.74 10*6/uL (4.10-5.10); WHITE BLOOD COUNT 7.9 10*3/uL (4.8-10.8)
[2019-07-29 15:28] LABS: ACT PARTIAL THROMBO TIME 23.4 SECONDS (20.0-32.1); INTERNATIONAL NORM RATIO 0.9 (2.0-3.5)
--- NOTE | 2019-07-29 15:30 | NUR ---
PAIN LEVEL MUCH IMPROVED AND PT WILLING TO HAVE DRESSINGS REMOVED NOW. FOUL ODOR AND THICKGREEN DRAINAGE FROM EACH HEEL. PHOTOGRAPHY AND FURTHER ASSESSMENT WILL BE PERFORMED AT THE SAME TIME, SOON.
[2019-07-29 15:33] LABS: ALBUMIN 2.6 gm/dl (3.1-4.5); ALKALINE PHOSPHATASE 142 U/L (45-117); BUN 9 mg/dl (7-24); CHLORIDE 106 mmol/L (98-107); LIPASE 303 U/L (73-393); POTASSIUM 4.1 mmol/L (3.5-5.1); SGOT/AST 14 IU/L (3-35); SGPT/ALT 13 U/L (12-78); SODIUM 138 mmol/L (136-145); TOTAL PROTEIN 7.3 gm/dL (6.4-8.2)
[2019-07-29 15:43] LABS: TROPONIN I < 0.015 ng/ml (<0.045)
--- NOTE | 2019-07-29 15:51 | NUR ---
WOUNDS ASSESSED DOCUMENTED. PAIN LEVEL 10/10 AGAIN AFTER ROLLING AND EXAMINATION. NEW MED ORDERS PENDING. DR HOFF SUGGESTS THAT PT'S THREE WOUNDS *NOT* BE DRESSED AGAIN SINCE ADMISSION NURSE AND HOSPITALISTS WILL NEED TO EXAM THESE WOUNDS AGAIN TODAY AND TO AVOID THE DISCOMFORT. ADSORBANT PADS PLACED BENEATH THESE WOUNDS.
[2019-07-29 15:59] VITALS: BP 143/82
[2019-07-29 16:00] VITALS: BP 142/68
[2019-07-29 16:50] VITALS: BP 142/68
--- NOTE | 2019-07-29 16:50 | NUR ---
A 49, admitted to , under the services of MARTI Tinajero DO with a diagnosis of INFECTED DECUBITUS ULCER. Chief complaint is WOUND CHECK. Patient arrived via bed from ER. Monitor applied. Initial assessment completed. Vital signs taken and recorded. MARTI TINAJERO DO notified of admission to the unit. Orders received. See assessment for past medical history, medications and allergies. Patient and/or family oriented to unit. [facility] visitation policy reviewed. Clothing/patient valuable form completed. IRVING LUND
[2019-07-29] MEDS ORDERED: BACLOFEN20 M1 PO (17:13)
[2019-07-29] MEDS ORDERED: ROXICODONE15 MG PO (17:13)
[2019-07-29] MEDS ORDERED: COUMADIN6 M2 PO (17:15)
[2019-07-29] MEDS ORDERED: TAMSULOSIN HCL0.4 MG PO (17:15)
[2019-07-29] MEDS ORDERED: LINZESS290 MC1 PO (17:16)
[2019-07-29] MEDS ORDERED: COLACE100 MG PO (17:16)
--- NOTE | 2019-07-29 17:43 | NUR ---
PT GIVEN 1 MG IV DILAUDID FOR PAIN TO COCCYX AND BILATERAL HEELS. WILL MONITOR FOR EFFECTIVENESS. PT LYING IN BED. IV FLUIDS/ANTIBIOTICS INFUSING INTO IV SITE IN RIGHT ARM. IV SITE PATENT. WILL CONTINUE TO MONITOR. CALL LIGHT IN REACH.
--- NOTE | 2019-07-29 18:30 | NUR ---
DR MARTINEZ NOTIFIED THAT PT MED REC IS UP TO DATE PER PATIENT AND HER MEDICATION BOTTLES THAT SHE BROUGHT WITH HER. PT STATES THAT FAMILY WILL BE AT HOSPITAL TO VISIT HER AND THAT SHE WILL SEND HER MEDICATION BOTTLES HOME RATHER THAN SENDING THE BOTTLES TO OUR PHARMACY.
--- NOTE | 2019-07-29 18:40 | NUR ---
PT STATES THAT SHE IS UNABLE TO DRINK BARIUM FOR CT OF ABDOMEN/PELVIS. DR MARTINEZ NOTIFIED AND STATES THAT WE CAN TRY USING IV CONTRAST. WILL NOTIFY PATIENT.
--- NOTE | 2019-07-29 18:55 | NUR ---
CT NOTIFIED THAT PT IS UNABLE TO USE PO BARIUM D/T HX OF VOMITING AFTER DRINKING BARIUM. MARKET RISK MANAGER STATES THAT NEW ORDER NEEDS PLACED FOR PT TO HAVE CT WITH CONTRAST. MARKET RISK MANAGER ALSO STATES THAT PT IS NOT TO HAVE EATEN. PT FOUND EATING IN ROOM. DR MARTINEZ NOTIFIED AND STATES TO RE TIME CT FOR 0700 TOMORROW MORNING. PT AWARE AND NOTIFIED.
--- NOTE | 2019-07-29 19:47 | NUR ---
CALL PLACED TO DR ROMAN REGARDING CONSULT. CALL WENT TO [employer] BUT UNABLE TO LEAVE MESSAGE DUE TO MAILBOX BEING FULL. WILL TRY AGAIN AND PASS ON TO PM NURSE.
[2019-07-29 20:00] VITALS: BP 150/88
--- NOTE | 2019-07-29 20:01 | NUR ---
SPOKE WITH DR ROMAN REGARDING CONSULT. PHYSICIAN STATES THAT HE WILL SEE PATIENT ON THURSDAY OR THURSDAY.
--- NOTE | 2019-07-29 20:24 | NUR ---
PT STATES THAT A FAMILY MEMBER IS ON THEIR WAY TO APPLICATION RELEASE MANAGER HER HOME MEDICATIONS.
--- NOTE | 2019-07-29 20:55 | NUR ---
PATIENT MEDICATED WITH DILAUDID PER PRN ORDER FOR C/O LOWER BACK PAIN. RATED PAIN A 7-8/10 WITH TEN BEING THE WORST. SEE EMAR. REINFORCED USE OF CALL LIGHT.
--- NOTE | 2019-07-29 22:15 | NUR ---
PATIENT STATED MEDICATION WAS EFFECTIVE. REINFORCED USE OF CALL LIGHT.
[2019-07-30] VITALS: BP 144/77
--- NOTE | 2019-07-30 00:05 | NUR ---
PATIENT REQUESTED AND WAS MEDICATED WITH DILAUDID PER PRN ORDER FOR C/O PAIN. RATED PAIN A "GOOD 8" OUT OF 10 WITH 10 BEING THE WORST. SEE EMAR. REINFORCED USE OF CALL LIGHT.
--- NOTE | 2019-07-30 06:40 | NUR ---
PATIENT MEDICATED SLOWLY WITH DILAUDID PER PRN ORDER FOR C/O BACK AND HEEL PAIN. RATED PAIN A 8/10 WITH 10 BEING THE WORST. SEE EMAR. REINFORCED USE OF CALL LIGHT
[2019-07-30 06:51] LABS: BASO % 0.4 % (0.0-1.0); EOS # 0.4 10*3/uL (0.0-0.4); EOS % 5.3 % (1.0-4.0); HEMATOCRIT 30.8 % (37.0-47.0); HEMOGLOBIN 9.4 g/dl (12.0-16.0); LYMPH # 1.9 10*3/uL (1.3-4.4); LYMPH % 25.2 % (27.0-41.0); MEAN CELL VOLUME 88.8 fl (81.0-99.0); MEAN CORPUSCULAR HGB 27.1 pg (27.0-31.0); MEAN CORPUSCULAR HGB CONC 30.5 g/dl (33.0-37.0); MEAN PLATELET VOLUME 9.7 fl (9.6-12.3); MONO # 0.5 10*3/uL (0.1-1.0); MONO % 6.3 % (3.0-9.0); NEUT # 4.7 10*3/uL (2.3-7.9); NEUT % 61.9 % (47.0-73.0); PLATELET COUNT AUTOMATED 298 10*3/uL (130-400); RED BLOOD COUNT 3.47 10*6/uL (4.10-5.10); WHITE BLOOD COUNT 7.6 10*3/uL (4.8-10.8)
[2019-07-30 07:08] LABS: BUN 10 mg/dl (7-24); CHLORIDE 107 mmol/L (98-107); CHOLESTEROL 158 mg/dL (<200); CREATININE 0.72 mg/dL (0.55-1.02); HDL CHOLESTEROL 32 mg/dl (40-60); LDL CHOLESTEROL 87 mg/dL (9-159); PHOSPHOROUS 4.6 mg/dL (2.5-4.9); POTASSIUM 3.9 mmol/L (3.5-5.1); SODIUM 141 mmol/L (136-145); TRIGLYCERIDES 193 mg/dl (<150); VLDL CHOLESTEROL 39 mg/dL (6-40)
--- NOTE | 2019-07-30 07:42 | NUR ---
TOOK OVER CARE OF PT AT THIS TIME. PT RESTING IN BED, EYES CLOSED, RESPIRATIONS EASY AND UNLABORED. IV ANTIBIOTICS INFUSING INTO RIGHT ARM IV SITE. SITE PATENT, DRESSING C/D/I. NO S/S OF DISTRESS. ALL SAFETY MEASURES IN PLACE FOR PT. CALL LIGHT IN REACH.
[2019-07-30 08:00] VITALS: BP 121/69
--- NOTE | 2019-07-30 09:21 | NUR ---
PT GIVEN PO NORCO AT THIS TIME FOR C/O PAIN TO COCCYX AND BILATERAL HEELS. RATING PAIN 9/10. WILL MONITOR FOR EFFECTIVENESS. CALL LIGHT IN REACH.
[2019-07-30 12:00] VITALS: BP 148/85
--- NOTE | 2019-07-30 12:50 | NUR ---
PA REPORTS THAT PATIENT'S GROIN IS REDDENED. ASSESSMENT COMPLETE. PT GROIN/ABDOMINAL FOLDS ARE REDDENED AND BLANCHABLE. PT STATES THAT SHE HAS USED NYSTATIN CREAM IN THE PAST AT HOME ON HER GROIN/ABDOMINAL FOLDS/BREAST FOLDS. PT REQUESTS NYSTATIN CREAM. PHYSICIAN NOTIFIED AND ORDERS RECEIVED TO APPLY NYSTATIN CREAM BID TO AFFECTED AREAS. PT AWARE OF NEW ORDERS.
--- NOTE | 2019-07-30 13:39 | NUR ---
PT MEDICATED WITH IV DILAUDID PER PRN ORDER FOR C/O BACK PAIN. CHRONIC PER PT. WILL MONITOR EFFECTIVENESS.
[2019-07-30 16:00] VITALS: BP 144/85
--- NOTE | 2019-07-30 16:00 | NUR ---
PATIENT ATTENDANT REPORTED TO THIS NURSE THAT PATIENT HAS WOUND ON LEFT ELBOW. UPON ASSESSING WOUND AND QUESTIONING PATIENT ABOUT WOUND- PT STATES THAT SHE OBTAINED WOUND TO LEFT POSTERIOR ELBOW AT HOME. PT STATES THAT A HOME HEALTH [facility] CARVER DROPPED HER DURING A TRANSFER THIS PAST WEEK, CAUSING AN ABRASION TO HER LEFT ELBOW. WOUND MEASUREMENTS OBTAINED, SHIFT DIRECTOR AND PHYSICIAN NOTIFIED. STAGE 2 WOUND ORDERS OBTAINED. WILL APPLY DRESSING PER ORDERS AND NOTIFY PATIENT. PATIENT ALSO HAS A SMALL SCAB BELOW THE WOUND TO HER LEFT POSTERIOR ELBOW. SCAB MEASURED. PATIENT STATES THAT SCAB IS ALSO FROM INCIDENT AT HOME THIS PAST WEEK. WILL CONTINUE TO MONITOR. PT LYING IN BED, ALL SAFETY MEASURES IN PLACE. CALL LIGHT IN REACH.
--- NOTE | 2019-07-30 19:55 | NUR ---
PATIENT MEDICATED SLOWLY WITH DILAUDID PER PRN ORDER AND PATIENT REQUEST FOR C/O BACK PAIN. RATED PAIN A 8/10 WITH 10 BEING THE WORST.
[2019-07-30 20:00] VITALS: BP 120/69
--- NOTE | 2019-07-30 22:00 | NUR ---
PATIENT STATED MED ONLY SLIGHTLY EFFECTIVE.
--- NOTE | 2019-07-30 22:16 | NUR ---
PATIENT REQUESTED AND WAS MEDICATED WITH ZOFRAN FOR C/O NAUSEA. SEE EMAR. REINFORCED USE OF CALL LIGHT.
--- NOTE | 2019-07-30 23:00 | NUR ---
ZOFRAN EFFECTIVE FOR NAUSEA. PATIENT REQUESTED AND WAS MEDICATED SLOWLY WITH DILAUDID FOR C/O BACK PAIN. RATED PAIN A 8/10 WITH 10 BEING THE WORST.
[2019-07-31] VITALS: BP 143/87
--- NOTE | 2019-07-31 01:00 | NUR ---
PATIENT RESTING QUIETLY. MEDICATION APPEARS EFFECTIVE.
[2019-07-31 06:22] LABS: BASO % 0.4 % (0.0-1.0); EOS # 0.5 10*3/uL (0.0-0.4); EOS % 5.9 % (1.0-4.0); HEMATOCRIT 32.2 % (37.0-47.0); HEMOGLOBIN 9.8 g/dl (12.0-16.0); LYMPH # 1.8 10*3/uL (1.3-4.4); LYMPH % 22.4 % (27.0-41.0); MEAN CELL VOLUME 88.2 fl (81.0-99.0); MEAN CORPUSCULAR HGB 26.8 pg (27.0-31.0); MEAN CORPUSCULAR HGB CONC 30.4 g/dl (33.0-37.0); MEAN PLATELET VOLUME 9.4 fl (9.6-12.3); MONO # 0.5 10*3/uL (0.1-1.0); MONO % 5.7 % (3.0-9.0); NEUT # 5.2 10*3/uL (2.3-7.9); NEUT % 64.2 % (47.0-73.0); PLATELET COUNT AUTOMATED 311 10*3/uL (130-400); RED BLOOD COUNT 3.65 10*6/uL (4.10-5.10); RED CELL DISTRI WIDTH 15.9 % (0-14.5)
[2019-07-31 06:40] LABS: BUN 10 mg/dl (7-24); CHLORIDE 105 mmol/L (98-107); CREATININE 0.81 mg/dL (0.55-1.02); POTASSIUM 4.2 mmol/L (3.5-5.1); SODIUM 139 mmol/L (136-145)
[2019-07-31 08:00] VITALS: BP 139/86
--- NOTE | 2019-07-31 10:52 | NUR ---
24 HR CHART CHECKS COMPLETE.
[2019-07-31 16:00] VITALS: BP 118/75
--- NOTE | 2019-07-31 19:48 | NUR ---
MEDICATED WITH DILAUDID FOR COMPLAINTS OF SACRAL AND HEEL PAIN. WILL CONTINUE TO MONITOR. CALL LIGHT IN REACH.
--- NOTE | 2019-07-31 19:54 | NUR ---
MEDICATED WITH ZOFRAN FOR COMPLAINTS OF NAUSEA.
[2019-07-31 20:00] VITALS: BP 153/86
--- NOTE | 2019-07-31 21:54 | NUR ---
MEDICATED WITH NORCO FOR COMPLAINTS OF PAIN WHILE BEING CLEANED UP AND TURNED. WILL CONTINUE TO MONITOR.
--- NOTE | 2019-07-31 23:43 | NUR ---
MEDICATED WITH DILAUDID. WILL MONITOR.
--- NOTE | 2019-08-01 03:09 | NUR ---
MEDICATED WITH DILAUDID FOR COMPLAINTS OF BACK PAIN. WILL CONTIMUE TO MONITOR.
--- NOTE | 2019-08-01 05:26 | NUR ---
MEDICATED WITH NORCO FOR COMPLAINTS OF PAIN DURING BATH.
--- NOTE | 2019-08-01 06:32 | NUR ---
MEDICATED WITH DILAUDID FOR COMPLAINTS OF BACK PAIN.
[2019-08-01 06:38] LABS: BASO % 0.4 % (0.0-1.0); EOS # 0.4 10*3/uL (0.0-0.4); EOS % 5.5 % (1.0-4.0); HEMATOCRIT 33.5 % (37.0-47.0); HEMOGLOBIN 9.9 g/dl (12.0-16.0); LYMPH # 1.8 10*3/uL (1.3-4.4); LYMPH % 25.9 % (27.0-41.0); MEAN CELL VOLUME 89.3 fl (81.0-99.0); MEAN CORPUSCULAR HGB 26.4 pg (27.0-31.0); MEAN CORPUSCULAR HGB CONC 29.6 g/dl (33.0-37.0); MEAN PLATELET VOLUME 9.6 fl (9.6-12.3); MONO # 0.4 10*3/uL (0.1-1.0); MONO % 5.3 % (3.0-9.0); NEUT # 4.4 10*3/uL (2.3-7.9); PLATELET COUNT AUTOMATED 293 10*3/uL (130-400); RED BLOOD COUNT 3.75 10*6/uL (4.10-5.10); RED CELL DISTRI WIDTH 16.1 % (0-14.5)
[2019-08-01 07:03] LABS: BUN 11 mg/dl (7-24); CHLORIDE 105 mmol/L (98-107); CREATININE 0.96 mg/dL (0.55-1.02); POTASSIUM 4.1 mmol/L (3.5-5.1); SODIUM 140 mmol/L (136-145)
[2019-08-01 08:00] VITALS: BP 114/68
--- NOTE | 2019-08-01 09:58 | NUR ---
MEDICATED WITH DILAUDID PER PRN ORDER FOR COMPLAINTS OF 9/10 ALL OVER PAIN. WILL MONITOR FOR EFFECTIVENESS.
[2019-08-01] MEDS ORDERED: ROXICODONE15 MG PO (10:11)
[2019-08-01] MEDS ORDERED: LYRICA25 M1 PO (10:11)
[2019-08-01] MEDS ORDERED: BASAG SOL SQ (10:13)
--- NOTE | 2019-08-01 10:53 | NUR ---
IN TO EXPLAIN D/C PHOTO PROCESS, PT STATES SHE WOULD RATHER NOT, SHE SAID TURNING AND REPOSITIONING IS TOO PAINFUL FOR HER AND SHE ALREADY HAD TO DO IT ONCE THIS AM FOR THE DR TO SEE HER WOUNDS, AND HER DRESSINGS WERE CHANGED EARLY THIS MORNING.
[2019-08-01 12:00] VITALS: BP 139/76
--- NOTE | 2019-08-01 12:04 | NUR ---
PT REQUESTED TO FIND OUT HOW MANY PAIN PILLS THE DR WAS PRESCRIBING HER TO GO HOME WITH. INFORMED HER THAT DR URIBE WROTE FOR 14 TABS. SHE STATES SHE WILL NEED MORE THAN THAT SHE DOESN'T FOLLOW UP WITH ANYONE FOR TWO WEEKS, ALTHOUGH SHE TOLD DR URIBE SHE DIDN'T HAVE A PCP AND WOULD NEED INFO ON WHERE TO FOLLOW UP. STATES SHE ESTABLISHED THIS ON THURSDAY. EXPLAINED TO PT'S THAT THE DR'S ARE LIMITED ON HOW MUCH NARCOTICS THEY PRESCRIBE, PT STILL REQUESTING I CALL THE DR. CALL PLACED TO DR GREENFIELD, STATES SHE WILL SPEAK WITH DR URIBE AND GET BACK TO ME.
--- NOTE | 2019-08-01 12:04 | NUR ---
MEDICATED PT WITH NORCO PER PRN ORDER FOR COMPLAINTS OF 8/10 ALL OVER PAIN. WILL MONITOR FOR EFFECTIVENESS.
--- NOTE | 2019-08-01 14:41 | NUR ---
Discharge instructions reviewed with patient/family. Patient receptive and verbalizes understanding. Follow-up care arranged. Written instructions given to patient/family. IV site removed. Pt transported to [facility] via wheelchair. ISELA CASTRO
== END 2019-08-01 14:41 | disposition home or self-care (01) | DRG 592 ==
LOC: ED 13:53 → EDHOLD 16:13 → 4E 16:26
PROVIDERS: Emergency Medicine; Hospitalist; Internal Medicine; Student in an Organized Health Care Education/Training Program; ADMIT Internal Medicine
DX: L89.623 Pressure ulcer of left heel, stage 3 (principal); E43 Unspecified severe protein-calorie malnutrition; N39.0 Urinary tract infection, site not specified; F17.210 Nicotine dependence, cigarettes, uncomplicated; D64.9 Anemia, unspecified; R74.8 Abnormal levels of other serum enzymes; K22.70 Barrett's esophagus without dysplasia; K21.9 Gastro-esophageal reflux disease without esophagitis; E66.09 Other obesity due to excess calories; F41.9 Anxiety disorder, unspecified; G89.29 Other chronic pain; M79.2 Neuralgia and neuritis, unspecified; J43.9 Emphysema, unspecified; B96.5 Pseudomonas (aeruginosa) (mallei) (pseudomallei) as the cause of diseases classified elsewhere; L89.613 Pressure ulcer of right heel, stage 3; L89.152 Pressure ulcer of sacral region, stage 2; M54.9 Dorsalgia, unspecified; I10 Essential (primary) hypertension; F32.9 Major depressive disorder, single episode, unspecified; E11.65 Type 2 diabetes mellitus with hyperglycemia; E11.51 Type 2 diabetes mellitus with diabetic peripheral angiopathy without gangrene; R51 Headache; Z71.6 Tobacco abuse counseling; Z86.718 Personal history of other venous thrombosis and embolism; Z86.14 Personal history of Methicillin resistant Staphylococcus aureus infection; Z90.49 Acquired absence of other specified parts of digestive tract; Z82.49 Family history of ischemic heart disease and other diseases of the circulatory system; Z88.1 Allergy status to other antibiotic agents; Z88.6 Allergy status to analgesic agent; Z79.899 Other long term (current) drug therapy; Z79.01 Long term (current) use of anticoagulants; Z68.36 Body mass index [BMI] 36.0-36.9, adult

== ENCOUNTER 2019-08-15 13:56 | Inpatient (IN) | payer OTHER ==
[~2019-08-15] VITALS: Ht 149.9 cm; Wt 85.7 kg
[~2019-08-15 13:56] MED LIST changes: +BACLOFEN20 M1 PO; +BASAG SOL SQ; +COLACE100 MG PO; +COUMADIN6 M2 PO; +LINZESS290 MC1 PO; +LYRICA25 M1 PO; +ROXICODONE15 MG PO; +TAMSULOSIN HCL0.4 MG PO
[2019-08-15 14:02] VITALS: BP 174/66
[2019-08-15 15:33] LABS: BASO % 0.4 % (0.0-1.0); EOS # 0.5 10*3/uL (0.0-0.4); EOS % 6.5 % (1.0-4.0); HEMATOCRIT 34.1 % (37.0-47.0); HEMOGLOBIN 10.6 g/dl (12.0-16.0); LYMPH # 1.8 10*3/uL (1.3-4.4); LYMPH % 25.4 % (27.0-41.0); MEAN CELL VOLUME 85.7 fl (81.0-99.0); MEAN CORPUSCULAR HGB 26.6 pg (27.0-31.0); MEAN CORPUSCULAR HGB CONC 31.1 g/dl (33.0-37.0); MEAN PLATELET VOLUME 9.9 fl (9.6-12.3); MONO # 0.4 10*3/uL (0.1-1.0); MONO % 5.5 % (3.0-9.0); NEUT # 4.3 10*3/uL (2.3-7.9); NEUT % 61.9 % (47.0-73.0); PLATELET COUNT AUTOMATED 266 10*3/uL (130-400); RED BLOOD COUNT 3.98 10*6/uL (4.10-5.10); RED CELL DISTRI WIDTH 16.2 % (0-14.5); WHITE BLOOD COUNT 6.9 10*3/uL (4.8-10.8)
[2019-08-15 15:44] LABS: ACT PARTIAL THROMBO TIME 32.3 SECONDS (20.0-32.1); INTERNATIONAL NORM RATIO 2.4 (2.0-3.5)
[2019-08-15 15:48] LABS: ALBUMIN 2.9 gm/dl (3.1-4.5); ALKALINE PHOSPHATASE 132 U/L (45-117); BUN 10 mg/dl (7-24); CHLORIDE 102 mmol/L (98-107); CREATININE 0.78 mg/dL (0.55-1.02); LIPASE 125 U/L (73-393); POTASSIUM 3.8 mmol/L (3.5-5.1); SGOT/AST 11 IU/L (3-35); SGPT/ALT 13 U/L (12-78); SODIUM 134 mmol/L (136-145); TOTAL PROTEIN 7.8 gm/dL (6.4-8.2)
--- NOTE | 2019-08-15 17:20 | NUR ---
PT REQUESATING MORE PAIN MEDICATION AT THIS TIME. SHE IS RESTING IN BED WITH THE LIGHTS OFF, WILL CONTINUE TO MONITOR.
[2019-08-15 17:21] VITALS: BP 150/82
--- NOTE | 2019-08-15 19:03 | NUR ---
PT STATES THAT HER PAIN WAS INITIALLY IMPROVED BUT IS STARTING TO COME BACK AT THIS TIME. REPORT IS BEING GIVEN TO GUIDE DOG TRAINER RN.
--- NOTE | 2019-08-15 19:10 | NUR ---
RECEIVED REPORT FROM REA WALSH
[2019-08-15 21:18] VITALS: BP 156/77
[2019-08-15 21:30] VITALS: BP 152/77
--- NOTE | 2019-08-15 21:30 | NUR ---
Time: 2129 A 49 year old FEMALE admitted to 5E under services of MARTI TINAJERO DO. Pt. arrived via bed from ER. Chief complaint: DECUBITUS ULCER OF HEEL, BILATERAL, STAGE 3, INFECTED DECUBITUS ULCER. DARIUSZ HDEZ
[2019-08-15] MEDS ORDERED: CYCLOBENZAPRINE10 MG PO (22:15)
[2019-08-15] MEDS ORDERED: MELOXICAM15 MG PO (22:15)
[2019-08-15] MEDS ORDERED: LISINOPRIL20 MG PO (22:17)
--- NOTE | 2019-08-15 23:00 | NUR ---
DR. HERBERT NOTIFIED OF NEED FOR WOUND ORDERS. ORDERS OBTAINED.
[2019-08-15] MEDS ORDERED: OXYCODONE HCL10 M1 PO (23:55)
--- NOTE | 2019-08-15 23:55 | NUR ---
PATIENT IS RESTING IN BED WITH EASY AND REGULAR RESPERS ON ROOM AIR. ASSESSMENT IS COMPLETE WITH NO S/S OF DISTRESS NOTED. PATIENT DOES C/O PAIN TO BOTH FEET AND BACK, AND WAS MEDICATED BY PREVIOUS RN WITH MORPHINE WHICH IS NOT EFFECTIVE PER PATIENT. PATIENT IS ALSO CONCERNED ABOUT HOME MEDICATIONS BEING ORDERED, INFORMED PATIENT THAT DRJosias WOULD HAVE TO BE CALLED. BED IS LOW, LOCKED, AND CALL LIGHT IS WITHIN REACH. SEE SHIFT ASSESSMENT.
[2019-08-16] VITALS: BP 128/77
--- NOTE | 2019-08-16 | NUR ---
DR. HERBERT CONTACTED AT THIS TIME REGARDING MED REC BEING UP TO DATE AT THIS TIME. HE SAID HE WILL TAKE A LOOK AT THEM WHEN HE ACCESS TO A COMPUTER.
--- NOTE | 2019-08-16 01:15 | NUR ---
DR. HERBERT CONTACTED AT THIS TIME IN REGARDS TO PRN DIALUDID GIVEN AT 2244 IS NOT EFFECTIVE PER PATIENT. FREQUENCY INCREASED TO Q3H.
[2019-08-16 06:53] LABS: BASO % 0.6 % (0.0-1.0); EOS # 0.5 10*3/uL (0.0-0.4); EOS % 7.7 % (1.0-4.0); HEMATOCRIT 31.5 % (37.0-47.0); HEMOGLOBIN 9.7 g/dl (12.0-16.0); LYMPH # 1.7 10*3/uL (1.3-4.4); LYMPH % 23.7 % (27.0-41.0); MEAN CELL VOLUME 85.8 fl (81.0-99.0); MEAN CORPUSCULAR HGB 26.4 pg (27.0-31.0); MEAN CORPUSCULAR HGB CONC 30.8 g/dl (33.0-37.0); MEAN PLATELET VOLUME 10.1 fl (9.6-12.3); MONO # 0.4 10*3/uL (0.1-1.0); MONO % 5.7 % (3.0-9.0); NEUT # 4.3 10*3/uL (2.3-7.9); NEUT % 61.9 % (47.0-73.0); PLATELET COUNT AUTOMATED 243 10*3/uL (130-400); RED BLOOD COUNT 3.67 10*6/uL (4.10-5.10); RED CELL DISTRI WIDTH 16.2 % (0-14.5)
[2019-08-16 07:23] LABS: CHLORIDE 102 mmol/L (98-107); SODIUM 136 mmol/L (136-145)
[2019-08-16 07:43] LABS: ALBUMIN 2.6 gm/dl (3.1-4.5); ALKALINE PHOSPHATASE 130 U/L (45-117); BUN 8 mg/dl (7-24); CREATININE 0.76 mg/dL (0.55-1.02); PHOSPHOROUS 4.1 mg/dL (2.5-4.9); SGOT/AST 13 IU/L (3-35); SGPT/ALT 13 U/L (12-78); TOTAL PROTEIN 7.3 gm/dL (6.4-8.2)
[2019-08-16 08:00] VITALS: BP 134/84
--- NOTE | 2019-08-16 09:02 | NUR ---
MOISÉSBROOKE PARKER [id number] Please refer to the physician's history and physical for past medical history, comorbid conditions, and allergies. Diagnosis: DECUBITUS ULCER OF HEEL, BILATERAL STAGE 3 Sven Score: 14,MODERATE RISK WOUND DESCRIPTIONS: Wound Number: 1 Location of the wound: left heel Type of wound: unstageable Thickness: Full Size: 4.5cm x 6.5cm x <0.1cm Tunneling: none Undermining: none Sinus Tract: none Presence of Exudate: Serosanguineous Amount: Moderate Color: Brown, yellow, red Odor: Medium Periwound Skin Appearance: Erythema Wound edges: approximated Pain (associated with wound): tender to touch How does patient state this happened? pt stated this started back in january when she became paralyzed after reoccuring infections she stated she is unable to walk but is able to pivot she stated she has to scoot in order to get in and out of her home. She stated she is able to wiggle hers toes and does have pain to bilateral lower extremities she states she still gets sensations since being paralyzed from the waist down. Wound Number: 2 Location of the wound: right heel Type of wound: unstageable Thickness: Full Size: 4.5cm x 4.5cm x <0.1cm Tunneling: none Undermining: none Sinus Tract: none Presence of Exudate: Serosanguineous Amount: Moderate Color: Brown, yellow, red Odor: Medium Periwound Skin Appearance: Erythema Wound edges: approximated Pain (associated with wound): tender to touch How does patient state this happened? pt stated this started back in january when she became paralyzed after reoccuring infections she stated she is unable to walk but is able to pivot she stated she has to scoot in order to get in and out of her home. She stated she is able to wiggle hers toes and does have pain to bilateral lower extremities she states she still gets sensations since being paralyzed from the waist down. Wound Number: 3 Intact scab noted to left mann. no drainage at time of assessment. No redness noted at time of assessment. Pt stated this is from her transferring. Wound Number: 4 Location of the wound: coccyx Type of wound: unstageable Thickness: Full Size: 2.5cm x 3.0cm x 0.3cm Tunneling: none Undermining: none Sinus Tract: none Presence of Exudate: Serosanguineous Amount: Moderate Color: yellow, red Odor: Medium Periwound Skin Appearance: Erythema Wound edges: approximated Pain (associated with wound): tender to touch How does patient state this happened? pt stated this started back in january when she became paralyzed after reoccuring infections she stated she is unable to walk but is able to pivot she stated she has to scoot in order to get in and out of her home. She stated she is able to wiggle hers toes and does have pain to bilateral lower extremities she states she still gets sensations since being paralyzed from the waist down. Wound Number: 5 Location of the wound: left buttocks Type of wound: DTI Thickness: Full Size: 6.5cm x 3.0cm x <0.1cm Tunneling: none Undermining: none Sinus Tract: none Presence of Exudate: none Amount: none Color: red, brown, purple Odor: none Periwound Skin Appearance: Erythema Wound edges: approximated Pain (associated with wound): tender to touch How does patient state this happened? pt stated this started back in january when she became paralyzed after reoccuring infections she stated she is unable to walk but is able to pivot she stated she has to scoot in order to get in and out of her home. She stated she is able to wiggle hers toes and does have pain to bilateral lower extremities she states she still gets sensations since being paralyzed from the waist down. Wound Number: 5 Location of the wound: right buttocks Type of wound: stage 2 Thickness: Partial Size: 0.5cm x 0.3cm x 0.1cm Tunneling: none Undermining: none Sinus Tract: none Presence of Exudate: none Amount: none Color: red, brown, purple Odor: none Periwound Skin Appearance: Erythema Wound edges: approximated Pain (associated with wound): tender to touch How does patient state this happened? pt stated this started back in january when she became paralyzed after reoccuring infections she stated she is unable to walk but is able to pivot she stated she has to scoot in order to get in and out of her home. She stated she is able to wiggle hers toes and does have pain to bilateral lower extremities she states she still gets sensations since being paralyzed from the waist down. Wound Number: 6 Location of the wound: right medial aspect of great toe Type of wound: DTI Thickness: Size: 0.6cm x 0.4cm x <0.1cm Tunneling: none Undermining: none Sinus Tract: none Presence of Exudate: Amount: None Color: Red Odor: None Periwound Skin Appearance: Normal Wound edges: intact blood filled blister Pain (associated with wound): tender to touch How does patient state this happened? pt stated this is from her scooting Patient has red satelitte areas noted to lower abdominal folds at time of assessment musty odor noted at time of assessment. No drainage noted at time of assessment. Surface the patient is resting on: Position Pro SKIN PREVENTION RECOMMENDATION: 1. Pressure redistribution support surface as appropriate 2. Elevate heels 3. Remove boots/TEDS every shift and reapply 4. Head of bed 30 degrees as tolerated 5. Assess nutrition and hydration 6. Manage moisture 7. Avoid the use of containment devices while in bed 8. Use absorptive products on surfaces limit layers of linens on bed 9. Turn and reposition every 1-2 hours in bed and every 1 hour in chair as tolerated 10. Weight shifts every 15 minutes while up in chair 11. Offloading with pillows or device to keep heels elevated off bed 12. Monitor skin at least every shift 13. Inspect under medical devices twice a day WOUND TREATMENT RECOMMENDATIONS: Heel raiser pro boots to bilateral heels while in bed. Wheelchair cushion when oob. venous and arterial studies of ble's due to non-healing wounds. left ankle CT is suggestin three phase bone scan to rule out osteomyelitis. Dr. Thompson is already on consult may need debridement of coccyx and bilateral heels if studies allow. Full thickness guidelines: Cleanse coccyx with nss and apply sureprep around the wound therahoney to wound bed and cover with optifoam gentle daily and prn for soiling. Partial thickness guidelines: Cleanse right buttocks with nss and apply sureprep around the wound therahoney to wound bed and cover with optifoam gentel daily and prn for soiling. DTI guidelines: Apply sureprep to left buttocks and cover with optifoam gentle daily and prn for soiling. DTI guidelines: Apply sureprep to right medial great toe and cover with bandaid daily. Full thickness guidelines: Cleanse bilateral heels with nss and apply sureprep around the wound therahoney sheet to wound bed and cover with dsd daily and prn for soiling. Cleanse abdominal folds with soap and water pat area dry then apply nystatin powder every [address] Thompson requested records be obtained Miranda WALSH caring for patient notified regarding his request she stated she is in the room and see what other facilities that patient was at to obtain the records.
--- NOTE | 2019-08-16 09:31 | NUR ---
DILAUDID GIVEN FOR C/O BACK PAIN. RATES 9/10 ON PAIN SCALE. WILL MONITOR.
[2019-08-16 10:18] LABS: BILIRUBIN NEGATIVE (NEGATIVE); BLOOD TRACE-LYSED (NEGATIVE); CLARITY SL CLOUDY (CLEAR); COLOR STRAW (YELLOW); GLUCOSE 3+ (NEGATIVE); KETONE NEGATIVE (NEGATIVE); LEUKO ESTERASE TRACE (NEGATIVE); NITRITE POSITIVE (NEGATIVE); UROBILINOGEN 0.2 E.U./dl (0.2-1.0)
--- NOTE | 2019-08-16 10:28 | NUR ---
Dr. Meyers given wound care recommendations and stated he will give them to Dr. Aj.
--- NOTE | 2019-08-16 10:30 | NUR ---
DILAUDID EFFECTIVE PER PT.
[2019-08-16 10:40] LABS: BACTERIA TRACE; YEAST 2+
[2019-08-16 10:41] LABS: WBC 16-20 wbc/hpf (0-5)
[2019-08-16 12:00] VITALS: BP 134/70
--- NOTE | 2019-08-16 12:21 | NUR ---
PATIENT MEDICATED WITH DILAUDID AND ZOFRAN FOR NAUSEA AND 8/10 BACK PAIN. NURSE MADE AWARE. WILL MONITOR.
--- NOTE | 2019-08-16 12:46 | NUR ---
Faxed palliative care order to [facility] and notified palliative care nurseMellissa
--- NOTE | 2019-08-16 13:27 | NUR ---
Chronograph Operator in to talk to patient. Patient states lives at HOME with DAUGHTER. There are FEW steps in the home. 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 MEALS FROM MOMS MEALS WEEKLY Patient's level of ADLs: MAX ASSIST Patient has working utilities: YES DME: WHEEL CHAIR, WALKER Follow-up physician's appointment after d/c: WILL BE MADE BY HOSPITALIST NURSE DIRECTOR ON DISCHARGE Does patient want to access PORTAL?: NO Discharge plan PT LIVES AT HOME WITH HER DAUGHTER. TALKED TO PT ABOUT GOING TO A SKILLED FACILITY ON DISCHARGE TO HELP WITH WOUND HEALING AND THERAPY BUT SHE REFUSES, STATES NO I AM GOING HOME. ATTEMPTED TO EXPLAIN SEVERETY OF WOUNDS BUT PT BECAME UPSET AND SAID I AM GOING HOME. PT HAS WAIVER SERVICES IN HOME SEE ABOVE. WILL CONTINUE TO FOLLOW. STATES SHE WILL HAVE A RIDE HOME. TOM CRUZ
--- NOTE | 2019-08-16 14:09 | NUR ---
ACCOUNT OFFICER received notice of SNF consult. ACCOUNT OFFICER spoke with the patient who stated she would be returning home upon discharge. ACCOUNT OFFICER spoke with [employer]. Patient already has services in place upon her return home. -ALVINO Fajardo
--- NOTE | 2019-08-16 14:21 | NUR ---
KERWIN NATHAN NOTIFIED OF CONSULT.
--- NOTE | 2019-08-16 15:56 | NUR ---
PHYSICAL THERAPY Nursing screen received and chart reviewed. Physical therapy referral received. Thank you. Elsa Wilson,PT,DPT
[2019-08-16 16:00] VITALS: BP 129/66
--- NOTE | 2019-08-16 16:01 | NUR ---
DILAUDID GIVEN FOR C/O BACK PAIN. RATES 9/10 ON PAIN SCALE. WILL MONITOR.
--- NOTE | 2019-08-16 17:10 | NUR ---
DILAUDID EFFECTIVE PER PT.
--- NOTE | 2019-08-16 17:20 | NUR ---
Nursing screen received and Occupational Therapy referral received. Thank you. Lainey Dior OTR/l
--- NOTE | 2019-08-16 19:21 | NUR ---
PT REQUESTING PAIN MEDICATION FOR BACK PAIN RATED 8/10 ON 0/10 SCALE. OXYCODONE ADMINISTERED PRESCRIBED. WILL MONITOR FOR EFFECTIVENESS.
[2019-08-16 20:00] VITALS: BP 154/86
--- NOTE | 2019-08-16 20:21 | NUR ---
PATIENT STATES THAT OXYCODONE WAS A LITTLE EFFECTIVE FOR BACK PAIN, STILL RATES PAIN 6/10 ON 0/10 SCALE AT THIS TIME. WILL MONITOR.
--- NOTE | 2019-08-16 21:15 | NUR ---
PATIENT STATES THAT SHE TAKES XANAX AT HOME TID PRN FOR ANXIETY. MEDICATION NOT ON MED REQ, BUT ON MED CLAIM HISTORY AND WAS FILLED IN JUNE. ADDED TO MED REQ AND CALLED DR HERBERT FOR NEW ORDERS.
[2019-08-16] MEDS ORDERED: XANAX1 MG PO (21:18)
--- NOTE | 2019-08-16 21:57 | NUR ---
PATIENT REQUESTING MEDICATION FOR ANXIETY. XANAX ADMINISTERED PRESCRIBED. WILL MONITOR FOR EFFECTIVENESS.
--- NOTE | 2019-08-16 22:57 | NUR ---
PATIENT RESTING WITH EYES CLOSED AT THIS TIME, BED ALARM ON, CALL MATHIS WITHIN REACH. WILL MONITOR.
[2019-08-17] VITALS: BP 136/73
--- NOTE | 2019-08-17 | NUR ---
24 HR chart check completed.
--- NOTE | 2019-08-17 01:59 | NUR ---
PATIENT REQUESTING PAIN MEDICATION FOR BACK PAIN RATED 8/10 ON 0/10 SCALE. OXYCODONE ADMINISTERED PRESCRIBED. WILL MONITOR FOR EFFECTIVENESS. PATIENT ENCOURAGED TO TURN, BUT REFUSES DUW TO PAIN.
--- NOTE | 2019-08-17 03:00 | NUR ---
PATIENT RESTING WITH EYES CLOSED. RESPIRATIONS EASY AND UNLABORED. BED ALARM ENTACT AND CALL MATHIS WITHIN REACH. WILL MONITOR.
--- NOTE | 2019-08-17 05:50 | NUR ---
PATIENT REQUESTING PAIN MEDICATION FOR BACK PAIN RATED 8/10 ON 0/10 SCALE. OXYCODONE ADMINISTERED PRESCRIBED. WILL MONITOR FOR EFFECTIVENESS.
[2019-08-17 06:28] LABS: BASO % 0.8 % (0.0-1.0); EOS # 0.5 10*3/uL (0.0-0.4); EOS % 9.2 % (1.0-4.0); HEMATOCRIT 29.8 % (37.0-47.0); HEMOGLOBIN 9.2 g/dl (12.0-16.0); LYMPH # 1.4 10*3/uL (1.3-4.4); MEAN CELL VOLUME 86.1 fl (81.0-99.0); MEAN CORPUSCULAR HGB 26.6 pg (27.0-31.0); MEAN CORPUSCULAR HGB CONC 30.9 g/dl (33.0-37.0); MEAN PLATELET VOLUME 9.9 fl (9.6-12.3); MONO # 0.3 10*3/uL (0.1-1.0); MONO % 6.5 % (3.0-9.0); NEUT # 2.9 10*3/uL (2.3-7.9); NEUT % 56.1 % (47.0-73.0); PLATELET COUNT AUTOMATED 236 10*3/uL (130-400); RED BLOOD COUNT 3.46 10*6/uL (4.10-5.10); RED CELL DISTRI WIDTH 16.3 % (0-14.5); WHITE BLOOD COUNT 5.2 10*3/uL (4.8-10.8)
[2019-08-17 06:46] LABS: BUN 10 mg/dl (7-24); CHLORIDE 107 mmol/L (98-107); POTASSIUM 4.1 mmol/L (3.5-5.1); SODIUM 141 mmol/L (136-145)
--- NOTE | 2019-08-17 06:50 | NUR ---
PATIENT RESTING WITH EYES CLOSED AT THIS TIME. RESPIRATIONS EASY AND UNLABORED. BED ALARM ENTACT AND CALL LIGHT WITHIN RECH.
[2019-08-17 08:00] VITALS: BP 152/87
--- NOTE | 2019-08-17 08:48 | NUR ---
Dr. Meyers notified of wound care recommendations.
--- NOTE | 2019-08-17 11:00 | NUR ---
PHYSICAL THERAPY Physical therapy evaluation complete, 5E. High complexity PT evaluation (72945) per chart review and evaluation. PT to progress with bed mobility, transfers, gait, and safety per POC. Recommend SNF at discharge. Thank you. Elsa Wilson,PT,DPT
--- NOTE | 2019-08-17 11:00 | NUR ---
Occupational Therapy evaluation completed on 5 with full eval to follow. Precautions include fall risk,multiple wounds;coccyx,both heels, w/c dependent,ww used for standing but patient unable to transfer with ww, bowel incontinency,max +2 for transfers,high anxiety and high complexity level 14911 via chart review, testing and evaluation. Recommend OT per pOC and SNF upon d/c. Patient refuses SNF and reports that she is agreeable to home health PT,OT.SN and that she gets up and down the 5 steps to enter her home on her buttocks. Thank you. Lainey Dior OTR/l
[2019-08-17 12:00] VITALS: BP 130/78
--- NOTE | 2019-08-17 13:32 | NUR ---
PT IS STILL ADAMET THAT SHE IS GOING HOME ON DISCHARGE WITH HER SERVICES RESUMED AT HOME. WILL CONTINUE TO FOLLOW.
--- NOTE | 2019-08-17 14:20 | NUR ---
RECEIVED A CALL FROM [facility] THAT PT THE PT NON SKILLED AIDS ARE NOT GOING TO TAKE HER BACK DUE TO NON COMPLIANCE. ASKING IF SHE WOULD BE APPROPRIATE FOR AN L TACH. UP TO TALK TO PT ABOUT POSSIBLY GOING TO AN [facility]. PALLIATIVE TALKING WITH PT RIGHT NOW. WILL ATTEMPT TO TALK WITH PT AGAIN.
--- NOTE | 2019-08-17 15:00 | NUR ---
PROCESS COACH IN TO TALK TO PT. ATTEMPTED TO TALK TO PT ABOUT GOING TO AN LTAC BUT SHE STATES NO I AM GOING HOME AND NO WHERE ELSE. ASKED HER IF HEIDY FROM [facility] COULD COME AND TALK TO HER AND LET HER KNOW WHAT THEY ARE ABOUT, BUT SHE STATES I KNOW WHAT THEY ARE ABOUT AND I AM NOT GOING. ALSO INFORMED HER THAT CAITIE FROM [facility] CALLED AND SHE WAS LOSING HER NON SKILLED AIDS DUE TO NON COMPLIANCE. BUT THEY WERE LOOKING FOR OTHER COMPANIES. WILL CONTINUE TO FOLLOW.
--- NOTE | 2019-08-17 15:56 | NUR ---
OXY-IR GIVEN FOR C/O BACK PAIN. RATES 8/10 ON PAIN SCALE. WILL MONITOR.
[2019-08-17 16:00] VITALS: BP 141/78
[2019-08-17 20:00] VITALS: BP 152/93
--- NOTE | 2019-08-17 20:22 | NUR ---
PT C/O BACK PAIN RATING IT AN 8/10 ON THE PAIN SCALE. MEDICATED WITH PRN ROXICODONE. CALL LIGHT WITHIN REACH. WILL REASSESS.
--- NOTE | 2019-08-17 20:29 | NUR ---
PT C/O NAUSEA. MEDICATED WITH PRN ZOFRAN. CALL LIGHT WITHIN REACH. WILL REASSESS.
--- NOTE | 2019-08-17 21:30 | NUR ---
PT STATES ZOFRAN WAS EFFECTIVE. CALL LIGHT WITHIN REACH. WILL MONITOR.
--- NOTE | 2019-08-17 21:30 | NUR ---
PT STATES PAIN MED WAS EFFECTIVE RATING PAIN A 5/10. CALL LIGHT WITHIN REACH. WILL MONITOR.
[2019-08-18] VITALS (9 sets, daily range): BP systolic 134–172; BP diastolic 80–106
--- NOTE | 2019-08-18 04:25 | NUR ---
Follow up with Dr. Thompson in wound care clinic on 08/22/19 at 3:00pm, call [phone] with any concerns
--- NOTE | 2019-08-18 05:46 | NUR ---
NOTFIIED DR. HERBERT PATIENT IS C/O RIGHT ARM PAIN AND IS NOW SWOLLEN. 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 NO NEW ORDERS RECEIVED. WILL CONTINUE TO MONITOR.
--- NOTE | 2019-08-18 06:36 | NUR ---
PT C/O NAUSEA. MEDICATED WITH PRN ZOFRAN. WILL MONITOR FOR EFFECTIVENESS.
--- NOTE | 2019-08-18 06:36 | NUR ---
PT C/O BACK PAIN RATING PAIN A 9/10 ON THE PAIN SCALE. MEDICATED WITH PRN ROXICODONE. WILL REASSESS.
--- NOTE | 2019-08-18 07:00 | NUR ---
PT TAKEN TO SURGERY DEPT FOR PLACEMENT OF MEDIPORT.
--- NOTE | 2019-08-18 07:00 | NUR ---
PT TAKEN TO SURGERY DEPT AT THIS TIME FOR MEDIPORT PLACEMENT.
[2019-08-18 07:03] LABS: BASO % 0.6 % (0.0-1.0); EOS # 0.5 10*3/uL (0.0-0.4); EOS % 7.6 % (1.0-4.0); HEMOGLOBIN 9.4 g/dl (12.0-16.0); LYMPH # 1.6 10*3/uL (1.3-4.4); LYMPH % 24.8 % (27.0-41.0); MEAN CELL VOLUME 87.1 fl (81.0-99.0); MEAN CORPUSCULAR HGB 26.4 pg (27.0-31.0); MEAN CORPUSCULAR HGB CONC 30.3 g/dl (33.0-37.0); MEAN PLATELET VOLUME 10.1 fl (9.6-12.3); MONO # 0.3 10*3/uL (0.1-1.0); MONO % 4.6 % (3.0-9.0); NEUT # 3.9 10*3/uL (2.3-7.9); NEUT % 62.2 % (47.0-73.0); PLATELET COUNT AUTOMATED 269 10*3/uL (130-400); RED BLOOD COUNT 3.56 10*6/uL (4.10-5.10); RED CELL DISTRI WIDTH 16.2 % (0-14.5); WHITE BLOOD COUNT 6.3 10*3/uL (4.8-10.8)
[2019-08-18 07:18] LABS: BUN 9 mg/dl (7-24); CHLORIDE 108 mmol/L (98-107); CREATININE 0.75 mg/dL (0.55-1.02); POTASSIUM 4.5 mmol/L (3.5-5.1); SODIUM 140 mmol/L (136-145)
--- NOTE | 2019-08-18 07:20 | NUR ---
PT STATES ZOFRAN WAS EFFECTIVE.
--- NOTE | 2019-08-18 07:20 | NUR ---
PT STATES PAIN MED WAS EFFECTIVE. RATES PAIN A 7/10.
[2019-08-18 07:21] LABS: INTERNATIONAL NORM RATIO 2.6 (2.0-3.5)
--- NOTE | 2019-08-18 08:58 | NUR ---
PT REMAINS IN SURGERY DEPT FOR MEDIPORT PLACEMENT.
--- NOTE | 2019-08-18 09:00 | NUR ---
case management visits with patient, she will have [facility] and Palliative care follow her at home, no other needs at this time
--- NOTE | 2019-08-18 09:30 | NUR ---
PHYSICAL THERAPY Patient was out of her room for surgery this am and not available for treatment. Will continue this pm as able. Beltran Galindo, DISTRIBUTION CENTER ADMINISTRATOR
--- NOTE | 2019-08-18 09:57 | NUR ---
patient in surgery at this time. will check back at later time. kaushal dumont/lena
--- NOTE | 2019-08-18 10:02 | NUR ---
PT REMAINS IN SURGERY DEPT FOR MEDIPORT PLACEMENT.
--- NOTE | 2019-08-18 11:37 | NUR ---
NURSE TO NURSE REPORT REC'D FROM SURGERY. PT DOWN FOR BONE SCAN BEFORE COMING TO FLOOR.
--- NOTE | 2019-08-18 11:54 | NUR ---
Another Multi-Disciplinary Team meeting was held on 08/18/19, for the purpose of discharge planning. The patient was referred to the following services for follow-up: patient will be returning and [facility] follow, tenative discharge is today KAHLIL TORRES
--- NOTE | 2019-08-18 11:57 | NUR ---
BACK TO ROOM FROM SURGERY AND BONE SCAN.
--- NOTE | 2019-08-18 12:50 | NUR ---
PHYSICAL THERAPY Patient was supine in bed this pm when approached for therapy visit and reports feeling totally exhausted from am surgery / bone scan. Patient stated she had just returned to her room and wanted to sleep since being gone all morning. Will continue per POC as tolerated. Beltran Galindo, CAR SANDER
--- NOTE | 2019-08-18 13:05 | NUR ---
OT NOTE PATIENT SUPINE IN BED WITH HOB ELEVATED UPON ARRIVAL. PATIENT SHOWS EXHAUSTION UPON ARRIVAL AND STATED INCREASED FATIGUE FROM A.M. SURGERY. PATIENT STATED SHE WOULD LIKE TO PARTICIPATE IN THERAPY SESSIONS BUT SHE IS NOT FEELING WELL ENOUGH TO PARTICIPATE AT THIS TIME. WILL PROCEED WITH THERAPY WHEN APPROPRIATE. ADRIANNA VANN
--- NOTE | 2019-08-18 13:40 | NUR ---
ORDERED TO LEAVE [employer] ACCESSED BUT NOT TO USE.
[2019-08-18] MEDS ORDERED: OXYCONTIN20 M1 PO (14:25)
[2019-08-18] MEDS ORDERED: VITAMIN D5000 UNI1 PO (14:25)
[2019-08-18] MEDS ORDERED: DULOXETINE HCL30 MG PO (14:25)
--- NOTE | 2019-08-18 14:53 | NUR ---
When patient is discharged, she should be able to have her insurance cover transportation ([phone]).
--- NOTE | 2019-08-18 15:27 | NUR ---
ATTEMPTING TO TAKE DISCARGE PHOTOS/MEASUREMENTS OF WOUNDS. PT DECLINED DUE TO ANXIETY AT THIS TIME. XANAX GIVEN. WILL MONITOR. CALL LIGHT IN REACH.
[2019-08-18] MEDS ORDERED: EMLA 2.5% 30GM30 GM PO (15:31)
[2019-08-18] MEDS ORDERED: OXYCODONE HCL5 MG PO (16:27)
--- NOTE | 2019-08-18 18:32 | NUR ---
Discharge instructions reviewed with patient/family. Patient receptive and verbalizes understanding. Follow-up care arranged. Written instructions given to patient/family. JACQUES WHITNEY
--- NOTE | 2019-08-19 07:50 | NUR ---
OCCUPATIONAL THERAPY CO-SIGN I approve of the Occupational Therapy notes written above. SIMONA AGUILAR OTR/Gabriele
--- NOTE | 2019-08-19 07:51 | NUR ---
PHYSICAL THERAPY CO-SIGN I approve of the Physical Therapy notes written above. ZENOBIA AYERS PT, DPT
== END 2019-08-18 18:32 | disposition home or self-care (01) | DRG 853 ==
LOC: ED 13:56 → 5E 19:52 → EDHOLD 19:52 → 5E 20:32
PROVIDERS: Nurse Practitioner Family; Student in an Organized Health Care Education/Training Program; ADMIT Internal Medicine
PROC: 0JH60WZ Insertion of Totally Implantable Vascular Access Device into Chest Subcutaneous Tissue and Fascia, Open Approach (ICD-10-PCS; principal; 2019-08-18)
PROC: 02HV33Z Insertion of Infusion Device into Superior Vena Cava, Percutaneous Approach (ICD-10-PCS; 2019-08-18)
PROC: B518ZZA Fluoroscopy of Superior Vena Cava, Guidance (ICD-10-PCS; 2019-08-18)
PROC: B548ZZA Ultrasonography of Superior Vena Cava, Guidance (ICD-10-PCS; 2019-08-18)
DX: A41.9 Sepsis, unspecified organism (principal); L89.153 Pressure ulcer of sacral region, stage 3; L89.613 Pressure ulcer of right heel, stage 3; L89.623 Pressure ulcer of left heel, stage 3; E44.0 Moderate protein-calorie malnutrition; E87.1 Hypo-osmolality and hyponatremia; M86.172 Other acute osteomyelitis, left ankle and foot; M86.171 Other acute osteomyelitis, right ankle and foot; M86.8X8 Other osteomyelitis, other site; B37.9 Candidiasis, unspecified; K22.719 Barrett's esophagus with dysplasia, unspecified; D64.9 Anemia, unspecified; M79.2 Neuralgia and neuritis, unspecified; D72.810 Lymphocytopenia; D72.1 Eosinophilia; K21.9 Gastro-esophageal reflux disease without esophagitis; F17.210 Nicotine dependence, cigarettes, uncomplicated; E11.69 Type 2 diabetes mellitus with other specified complication; G89.29 Other chronic pain; J44.9 Chronic obstructive pulmonary disease, unspecified; M54.9 Dorsalgia, unspecified; R74.8 Abnormal levels of other serum enzymes; B96.1 Klebsiella pneumoniae [K. pneumoniae] as the cause of diseases classified elsewhere; L97.509 Non-pressure chronic ulcer of other part of unspecified foot with unspecified severity; E11.51 Type 2 diabetes mellitus with diabetic peripheral angiopathy without gangrene; R19.7 Diarrhea, unspecified; E66.01 Morbid (severe) obesity due to excess calories; F41.9 Anxiety disorder, unspecified; I10 Essential (primary) hypertension; F32.9 Major depressive disorder, single episode, unspecified; E11.65 Type 2 diabetes mellitus with hyperglycemia; E11.621 Type 2 diabetes mellitus with foot ulcer; Z79.4 Long term (current) use of insulin; Z86.718 Personal history of other venous thrombosis and embolism; Z71.6 Tobacco abuse counseling; Z86.14 Personal history of Methicillin resistant Staphylococcus aureus infection; Z90.710 Acquired absence of both cervix and uterus; Z90.49 Acquired absence of other specified parts of digestive tract; Z82.49 Family history of ischemic heart disease and other diseases of the circulatory system; Z88.1 Allergy status to other antibiotic agents; Z88.6 Allergy status to analgesic agent; Z79.899 Other long term (current) drug therapy; Z79.01 Long term (current) use of anticoagulants; Z80.8 Family history of malignant neoplasm of other organs or systems; Z68.37 Body mass index [BMI] 37.0-37.9, adult

== ENCOUNTER 2019-08-27 23:43 | Emergency (ER) | payer OTHER ==
[~2019-08-27] VITALS: Ht 154.9 cm; Wt 81.6 kg
[~2019-08-27 23:43] MED LIST changes: +DULOXETINE HCL30 MG PO; +EMLA 2.5% 30GM30 GM PO; +LISINOPRIL20 MG PO; +MELOXICAM15 MG PO; +OXYCODONE HCL10 M1 PO; +OXYCODONE HCL5 MG PO; +OXYCONTIN20 M1 PO; +VITAMIN D5000 UNI1 PO; +XANAX1 MG PO
[2019-08-28 00:33] LABS: HEMATOCRIT 29.1 % (37.0-47.0); HEMOGLOBIN 9.1 g/dl (12.0-16.0); MEAN CELL VOLUME 83.4 fl (81.0-99.0); MEAN CORPUSCULAR HGB 26.1 pg (27.0-31.0); MEAN CORPUSCULAR HGB CONC 31.3 g/dl (33.0-37.0); MEAN PLATELET VOLUME 9.9 fl (9.6-12.3); PLATELET COUNT AUTOMATED 143 10*3/uL (130-400); RED BLOOD COUNT 3.49 10*6/uL (4.10-5.10); RED CELL DISTRI WIDTH 16.5 % (0-14.5)
[2019-08-28 00:49] LABS: ALBUMIN 2.5 gm/dl (3.1-4.5); CREATININE 2.04 mg/dL (0.55-1.02); POTASSIUM 3.4 mmol/L (3.5-5.1); TOTAL PROTEIN 7.8 gm/dL (6.4-8.2); TROPONIN I 0.02 ng/ml (<0.045)
[2019-08-28 01:07] LABS: MICROCYTOSIS SLIGHT; PLATELET SUFFICIENCY LOW (NORMAL); TOTAL CELLS COUNTED 100 #CELLS
[2019-08-28 01:17] LABS: BILIRUBIN NEGATIVE (NEGATIVE); BLOOD 3+ (NEGATIVE); CLARITY CLOUDY (CLEAR); COLOR RED (YELLOW); GLUCOSE 3+ (NEGATIVE); KETONE 1+ (NEGATIVE); LEUKO ESTERASE 2+ (NEGATIVE); NITRITE POSITIVE (NEGATIVE); PH 6.5 (5.0-9.0)
[2019-08-28 01:40] LABS: BACTERIA 4+; RBC TNTC rbc/hpf (0-2)
[2019-08-28 05:35] LABS: HEMATOCRIT 25.1 % (37.0-47.0); HEMOGLOBIN 7.9 g/dl (12.0-16.0); MEAN CELL VOLUME 82.8 fl (81.0-99.0); MEAN CORPUSCULAR HGB 26.1 pg (27.0-31.0); MEAN CORPUSCULAR HGB CONC 31.5 g/dl (33.0-37.0); MEAN PLATELET VOLUME 10.5 fl (9.6-12.3); PLATELET COUNT AUTOMATED 131 10*3/uL (130-400); RED BLOOD COUNT 3.03 10*6/uL (4.10-5.10); RED CELL DISTRI WIDTH 16.8 % (0-14.5); WHITE BLOOD COUNT 16.7 10*3/uL (4.8-10.8)
[2019-08-28 05:51] LABS: CREATININE 1.79 mg/dL (0.55-1.02); POTASSIUM 3.1 mmol/L (3.5-5.1)
[2019-08-28 06:21] LABS: PLATELET SUFFICIENCY NORMAL (NORMAL); POLYCHROMASIA SLIGHT; SCHISTOCYTES FEW; TOTAL CELLS COUNTED 100 #CELLS
== END 2019-08-28 06:30 | disposition short-term general hospital (02) ==
LOC: ED 23:43
PROVIDERS: Emergency Medicine Emergency Medical Services
DX: A41.9 Sepsis, unspecified organism (principal); N32.89 Other specified disorders of bladder; R65.20 Severe sepsis without septic shock; E11.65 Type 2 diabetes mellitus with hyperglycemia; E83.42 Hypomagnesemia; E11.9 Type 2 diabetes mellitus without complications; J44.9 Chronic obstructive pulmonary disease, unspecified; K21.9 Gastro-esophageal reflux disease without esophagitis; I10 Essential (primary) hypertension; E66.01 Morbid (severe) obesity due to excess calories; F17.200 Nicotine dependence, unspecified, uncomplicated; Z88.1 Allergy status to other antibiotic agents; Z88.6 Allergy status to analgesic agent; Z79.899 Other long term (current) drug therapy; Z79.01 Long term (current) use of anticoagulants; Z79.4 Long term (current) use of insulin; W19.XXXA Unspecified fall, initial encounter; Y93.89 Activity, other specified; Y92.098 Other place in other non-institutional residence as the place of occurrence of the external cause; Y99.8 Other external cause status

== ENCOUNTER 2019-12-20 12:50 | Inpatient (IN) | payer OTHER ==
[~2019-12-20] VITALS: Ht 151.1 cm; Wt 77.1 kg
[~2019-12-20 12:50] MED LIST changes: -BACLOFEN20 M1 PO; +Baclofen PO; +LEVAQUIN750 M1 PO; +OMEPRAZOLE MAGN20 M1 PO; -OXYCODONE HCL10 M1 PO; +OXYCODONE HCL15 MG PO; +PREDNISONE20 M1 PO; +QUETIAPINE FUM100 M2 PO; -QUETIAPINE FUM200 M3 PO; +REMERON15 M2 PO; -REMERON30 M1 PO
[2019-12-20 13:10] VITALS: BP 98/50
--- NOTE | 2019-12-20 13:10 | NUR ---
Time: 1309 A 49 year old FEMALE admitted to under services of ALEXANDER FISHER DO. Pt. arrived via wheel chair from [place]. Chief complaint: C-DIFF,UTI. DARIUSZ HDEZ
[2019-12-20] MEDS ORDERED: METOPROLOL SUCC25 M2 PO (14:17)
[2019-12-20] MEDS ORDERED: ZOLOFT100 MG PO (14:18)
[2019-12-20] MEDS ORDERED: GLUCOPHAGE1000 MG PO (14:19)
[2019-12-20] MEDS ORDERED: BUSPAR5 MG PO (14:19)
[2019-12-20] MEDS ORDERED: VANCOMYCIN HCL125 MG PO (14:20)
[2019-12-20] MEDS ORDERED: DIFLUCAN150 MG PO (14:20)
[2019-12-20] MEDS ORDERED: ALBUTEROL2.5 MG/0.5 INH (14:24)
[2019-12-20] MEDS ORDERED: TORSEMIDE10 MG PO (14:24)
[2019-12-20] MEDS ORDERED: CARTIA XT180 MG PO (14:24)
[2019-12-20] MEDS ORDERED: CYCLOBENZAPRINE5 M3 PO (14:28)
--- NOTE | 2019-12-20 14:45 | NUR ---
DR. MARTINEZ ON THE FLOOR MADE AWARE OF WOUNDS/AND MEDICATIONS NEEDS ORDERED.
--- NOTE | 2019-12-20 15:20 | NUR ---
DR. URIBE IN TO SEE PT.
[2019-12-20 15:22] LABS: BASO # 0.1 10*3/uL (0.0-0.1); BASO % 0.6 % (0.0-1.0); EOS # 0.2 10*3/uL (0.0-0.4); EOS % 1.4 % (1.0-4.0); HEMATOCRIT 33.3 % (37.0-47.0); HEMOGLOBIN 10.6 g/dl (12.0-16.0); LYMPH # 4.6 10*3/uL (1.3-4.4); LYMPH % 33.7 % (27.0-41.0); MEAN CELL VOLUME 80.6 fl (81.0-99.0); MEAN CORPUSCULAR HGB 25.7 pg (27.0-31.0); MEAN CORPUSCULAR HGB CONC 31.8 g/dl (33.0-37.0); MONO # 0.7 10*3/uL (0.1-1.0); MONO % 5.2 % (3.0-9.0); NEUT % 58.7 % (47.0-73.0); PLATELET COUNT AUTOMATED 301 10*3/uL (130-400); RED BLOOD COUNT 4.13 10*6/uL (4.10-5.10); RED CELL DISTRI WIDTH 14.1 % (0-14.5); WHITE BLOOD COUNT 13.6 10*3/uL (4.8-10.8)
--- NOTE | 2019-12-20 15:25 | NUR ---
IV started right forearm with #22 angiocath after 2 attempts. The IV site was prepped with Chloraprep. Heparin lock attached. IV solution NS infusing at 100 cc/hr. Sterile dressing applied. Patient tolerated precedure well. Procedure performed according to [facility] policy & procedure. DARIUSZ HDEZ
--- NOTE | 2019-12-20 15:39 | NUR ---
PT C/O NAUSEA, MEDICATED WITH ZOFRAN IV PER PRN ORDER, SEE EMAR. CALL LIGHT IN REACH. IVF INFUSING WITH NO PROBLEM.
[2019-12-20 15:43] LABS: ALBUMIN 2.9 gm/dl (3.1-4.5); ALKALINE PHOSPHATASE 174 U/L (45-117); BUN 39 mg/dl (7-24); CHLORIDE 104 mmol/L (98-107); CREATININE 1.59 mg/dL (0.55-1.02); PHOSPHOROUS 3.2 mg/dL (2.5-4.9); POTASSIUM 3.5 mmol/L (3.5-5.1); SGOT/AST 10 IU/L (3-35); SGPT/ALT 16 U/L (12-78); SODIUM 138 mmol/L (136-145); TOTAL PROTEIN 7.3 gm/dL (6.4-8.2)
[2019-12-20 16:00] VITALS: BP 86/48
--- NOTE | 2019-12-20 16:20 | NUR ---
DR. GARNICA AWARE OF CONSULT.
[2019-12-20 17:00] VITALS: BP 94/50
--- NOTE | 2019-12-20 17:25 | NUR ---
DR. MARTINEZ IN TO REPLACE SUPRAPUBIC CATH. MEDICATED WITH DILAUDID IV PER ORDER FOR C/O LOWER ABDOMINAL PAIN, RATES PAIN 8 ON PAIN SCALE. [id number], SEE EMAR.
--- NOTE | 2019-12-20 18:25 | NUR ---
PT RESTING IN BED. TOLERATING IV AT THIS TIME. NO C/O AT THIS TIME. MEDICATION HELPED. CALL LIGHT IN REACH.
[2019-12-20 18:28] LABS: BILIRUBIN NEGATIVE (NEGATIVE); BLOOD 3+ (NEGATIVE); CLARITY SL CLOUDY (CLEAR); COLOR YELLOW (YELLOW); GLUCOSE NEGATIVE (NEGATIVE); KETONE NEGATIVE (NEGATIVE); LEUKO ESTERASE 2+ (NEGATIVE); NITRITE NEGATIVE (NEGATIVE); SPECIFIC GRAVITY 1.005 (1.005-1.030); UROBILINOGEN 0.2 E.U./dl (0.2-1.0)
[2019-12-20 18:36] LABS: BACTERIA 2+; RBC 16-20 rbc/hpf (0-2); WBC TNTC wbc/hpf (0-5)
[2019-12-20 20:00] VITALS: BP 103/49
[2019-12-21] VITALS: BP 108/58; BP 89/46
--- NOTE | 2019-12-21 05:51 | NUR ---
BROOKE SPICER [id number] Please refer to the physician's history and physical for past medical history, comorbid conditions, and allergies. Diagnosis: DIARRHEA C DIFF UTI Sven Score: 16,AT RISK WOUND DESCRIPTIONS: Wound Number: 1 Location of the wound: right heel Type of wound: unstageable Thickness: Full Size: 4.5cm x 4.0cm x 0.2cm Tunneling: none Undermining: none Sinus Tract: none Presence of Exudate: Serosanguineous Amount: Light Color: Black, red, brown, purple Odor: Medium Periwound Skin Appearance: Scar Wound edges: approximated Pain (associated with wound): none at time of assessment How does patient state this happened? pt stated this has been going on for about 1 year and prior to having visiting nurses at home she states she was at [place] and they were caring for these areas there Wound Number: 2 Location of the wound: left heel Type of wound: unstageable Thickness: Full Size: 5.0cm x 6.5cm x 0.2cm Tunneling: none Undermining: none Sinus Tract: none Presence of Exudate: Serosanguineous Amount: Light Color: Black, red, brown, purple, yellow Odor: Medium Periwound Skin Appearance: Scar Wound edges: approximated Pain (associated with wound): none at time of assessment How does patient state this happened? pt stated this has been going on for about 1 year and prior to having visiting nurses at home she states she was at [place] and they were caring for these areas there Wound Number: 3 Location of the wound: coccyx Type of wound: stage 3 Thickness: Full Size: 3.2cm x 2.0cm x 0.1cm Tunneling: none Undermining: none Sinus Tract: none Presence of Exudate: Serosanguineous Amount: Light Color: Red, yellow Odor: None Periwound Skin Appearance: Scar Wound edges: approximated Pain (associated with wound): none at time of assessment How does patient state this happened? pt stated this has been going on for about 1 year and prior to having visiting nurses at home she states she was at [place] and they were caring for these areas there Wound Number: 4 Location of the wound: left buttocks Type of wound: stage 2 Thickness: Partial Size: 2.0cm x 0.5cm x 0.1cm Tunneling: none Undermining: none Sinus Tract: none Presence of Exudate: Serosanguineous Amount: Light Color: Red Odor: None Periwound Skin Appearance: Scar Wound edges: approximated Pain (associated with wound): none at time of assessment How does patient state this happened? pt stated this has been going on for about 1 year and prior to having visiting nurses at home she states she was at [place] and they were caring for these areas there Surface the patient is resting on: Isoflex SKIN PREVENTION RECOMMENDATION: 1. Pressure redistribution support surface as appropriate 2. Elevate heels 3. Remove boots/TEDS every shift and reapply 4. Head of bed 30 degrees as tolerated 5. Assess nutrition and hydration 6. Manage moisture 7. Avoid the use of containment devices while in bed 8. Use absorptive products on surfaces limit layers of linens on bed 9. Turn and reposition every 1-2 hours in bed and every 1 hour in chair as tolerated 10. Weight shifts every 15 minutes while up in chair 11. Offloading with pillows or device to keep heels elevated off bed 12. Monitor skin at least every shift 13. Inspect under medical devices twice a day WOUND TREATMENT RECOMMENDATIONS: Stage 2 guidelines: Cleanse left buttocks with nss and apply sureprep around the wound therahoney to wound bed and cover with optifoam gentle daily and prn for soiling Stage 3 guidelines: Cleanse coccyx with nss and apply sureprep around the wound therahoney to wound bed and cover with optifoam gentle daily and prn for soiling. Consult [facility] [place] for possible debridement of coccyx Arterial studies of bilateral lower extremities due to non-healing wounds. Imaging studies of bilateral heels due to non-healing wounds. Consult podiatry for possible debridement of bilateral heels if studies allow. Unstageable guidelines: Cleanse bilateral heels with nss and apply sureprep around the wound therahoney to wound bed and cover with dsd daily and prn for soiling. Heel raiser pro boots to bilateral feet while in bed. Wheelchair cushion when oob. Patient is requesting to follow up in the wound care center upon discharge as well as with visiting nurses.
[2019-12-21 07:43] LABS: BASO # 0.1 10*3/uL (0.0-0.1); BASO % 0.6 % (0.0-1.0); EOS # 0.2 10*3/uL (0.0-0.4); EOS % 2.2 % (1.0-4.0); HEMATOCRIT 30.8 % (37.0-47.0); HEMOGLOBIN 9.5 g/dl (12.0-16.0); LYMPH % 35.2 % (27.0-41.0); MEAN CORPUSCULAR HGB 25.7 pg (27.0-31.0); MEAN CORPUSCULAR HGB CONC 30.8 g/dl (33.0-37.0); MEAN PLATELET VOLUME 10.5 fl (9.6-12.3); MONO # 0.6 10*3/uL (0.1-1.0); MONO % 6.9 % (3.0-9.0); NEUT # 4.7 10*3/uL (2.3-7.9); NEUT % 54.6 % (47.0-73.0); PLATELET COUNT AUTOMATED 257 10*3/uL (130-400); RED CELL DISTRI WIDTH 14.2 % (0-14.5); WHITE BLOOD COUNT 8.5 10*3/uL (4.8-10.8)
[2019-12-21 07:45] LABS: MEAN CELL VOLUME 83.2 fl (81.0-99.0)
--- NOTE | 2019-12-21 07:53 | NUR ---
PHYSICAL THERAPY Screen received as well as PT eval will follow thank you Erma Nick PT
[2019-12-21 07:54] LABS: CREATININE 1.38 mg/dL (0.55-1.02); POTASSIUM 4.1 mmol/L (3.5-5.1)
[2019-12-21 08:00] VITALS: BP 100/52
--- NOTE | 2019-12-21 08:30 | NUR ---
PT RESTING IN BED WITH EYES CLOSED. RESP-EASY AND REGULAR. IVF INFUSING WITH NO PROBLEM. PT POSITIONED SELF IN BED. C/O ABDOMINAL PAIN, MEDICATING PER EMAR. CALL LIGHT IN REACH. SEE SHIFT ASSESSMENT.
--- NOTE | 2019-12-21 09:00 | NUR ---
Ski Patrol Director in to talk to patient. Patient states lives at home with her daughter. There are no steps in the home. Physician: Dr. Alida De La Rosa [facility]: [facility] Home health services: currently has [facility] RN/PT/OT and would like to resume those services upon discharge. Mom[employer] meals delivery. [place] waiver services. Patient's level of ADLs: MAX ASSIST Patient has working utilities: yes DME: wheelchair, walker Follow-up physician's appointment after d/c: will be made by the hospitalist nurse director upon discharge Does patient want to access PORTAL?: no Discharge plan discussed with patient. She lives at home with her daughter. She needs assistance with her ADLs and ambulates with a walker or gets around in her wheelchair. Discussed home health care services and she currently has [facility] and would like to resume those services upon discharge. [facility] and her showcase maker is Rolanda Gordon. She states she is not able to have 2 services at the same time. When medically stable she will be discharged to home with the resumption of her home health care services. Her daughter will provide transportation on discharge. ZENOBIA GREEN
--- NOTE | 2019-12-21 09:10 | NUR ---
Occupational therapy orders and nursing screen received. Will follow up with patient for completion of OT eval. Thank you. Kary Rooney, OTR/L
--- NOTE | 2019-12-21 09:26 | NUR ---
CALLED DR. MCARTHUR FOR CONSULT FOR DR. MANRIQUE THEY ARE AWARE OF CONSULT.
--- NOTE | 2019-12-21 09:30 | NUR ---
SPOKE WITH ADOLFO, SHE MADE MOUNIKA AWARE OF CONSULT.
--- NOTE | 2019-12-21 09:55 | NUR ---
MEDICATED WITH DILAUDID IV PER PRN ORDER FOR C/O ABDOMINAL PAIN, RATES PAIN 8 ON PAIN SCALE 0-10. WOUND CARE ON THE FLOOR TO TAKE CARE OF COCCYX WOUND. CALL LIGHT IN REACH.
--- NOTE | 2019-12-21 10:40 | NUR ---
RESTING IN BED WITH EYES CLOSED. RESP-EASY AND REGULAR. MEDICATION SEEMS TO EFFECTIVE. CALL LIGHT IN REACH.
--- NOTE | 2019-12-21 10:45 | NUR ---
Wound care recommendations given to nurse caring for patient.
--- NOTE | 2019-12-21 10:52 | NUR ---
SPOKE WITH DR. SHULTZ MADE AWARE WOUND RECOMMENDATION PAPER IS AT DESK TO ORDER FOR WOUND CARE.
--- NOTE | 2019-12-21 11:36 | NUR ---
SPOKE WITH DR. SHULTZ MADE AWARE PT BP 100/50 THIS AM, HELD LISINOPRIL. PT BP 107/43 ON MACHINE NOW, HE STATES TO JUST HOLD THE LISINOPRIL.
--- NOTE | 2019-12-21 11:40 | NUR ---
PT C/O LOWER ABDOMINAL PAIN AND BACK PAIN, RATES PAIN 8 ON PAIN SCALE 0-10. MEDICATED WITH NORCO PO PER PRN ORDER, SEE EMAR. CALL LIGHT IN REACH.
[2019-12-21 12:00] VITALS: BP 107/43
--- NOTE | 2019-12-21 13:35 | NUR ---
SENIOR LEAD DEVELOPER faxed resumption order to [facility]. -ALVINO Fajardo
--- NOTE | 2019-12-21 14:30 | NUR ---
PT C/O LOWER ABDOMINAL PAIN, RATES PAIN 7 ON PAIN SCALE 0-10. MEDICATED WITH DILAUDID IV PER PRN ORDER, SEE EMAR. CALL LIGHT IN REACH. BSG-347, SEE EMAR. CALL LIGHT IN REACH. SEE SHIFT ASSESSMENT.
--- NOTE | 2019-12-21 15:20 | NUR ---
RESTING IN BED WITH EYES CLOSED. MEDICATION SEEMS TO BE EFFECTIVE. CALL LIGHT IN REACH.
[2019-12-21 16:00] VITALS: BP 114/56
--- NOTE | 2019-12-21 17:32 | NUR ---
PT REQUESTED PO NORCO PER PRN ORDER FOR C/O STOMACH AND HEAD PAIN. RATES PAIN 8/10. CHRONIC PAIN PER PT. WILL MONITOR EFFECTIVENESS. CALL LIGHT WITHIN REACH.
--- NOTE | 2019-12-21 18:10 | NUR ---
PATIENT MEDICATED WITH IV DILAUDID PER PRN ORDER FOR C/O ABD PAIN. WILL MONITOR EFFECTIVENESS.
[2019-12-21 20:00] VITALS: BP 138/80
--- NOTE | 2019-12-21 21:20 | NUR ---
PATIENT STATES THAT SHE WOULD LIKE TO BE DISCHARGED BY 1PM TOMORROW. SHE STATED THAT SHE HAS A RIDE SET UP AND EVERYTHING AND ALREADY HAS VISITNG NURSES AT HOME WHERE IF SHE NEEDS IV ANTIBIOTICS AND LINE, THEY WOULD BE ABLE TO DO IT. SHE STATES SHE DOESN'T UNDERSTAND WHY SHE WOULD NEED TO LAY HERE FOR MUCH LONGER THAN THAT. EXPLAINED TO THE PATIENT THE DOCTORS NEED TO FIGURE OUT WHAT WOULD BE BEST FOR HER TO GO HOME ON AND IF SHE WOULD NEED A LINE OR NOT AND THAT SHE MAY NOT BE ABLE TO GO TOMORROW. SHE STATED HER PAIN WAS BAD BUT WAS HOPING AFTER THE CATHETER CHANGE THAT IT WOULD GET BETTER, BECAUSE SHE THINKS IT'S BECAUSE OF THE UTI SHE HAS.
--- NOTE | 2019-12-21 21:39 | NUR ---
PRN NORCO GIVEN FOR PT COMPLAINTS OF 10/10 ABD PAIN AND BACK PAIN. CALL LIGHT WITHIN REACH, WILL MONITOR
--- NOTE | 2019-12-21 22:22 | NUR ---
PRN DILAUDID GIVEN FOR PT COMPLAINTS OF BACK PAIN RATING IT 8/10, NORCO SOMEWHAT EFFECTIVE
--- NOTE | 2019-12-21 22:30 | NUR ---
RIGHT AFTER DILAUDID WAS ADMINISTERED PATIENT STATED THAT SHE STARTED TO FEEL SOME RELIEF FROM THE PAIN
[2019-12-21 23:57] VITALS: BP 137/64
[2019-12-22 07:17] LABS: BUN 24 mg/dl (7-24); CHLORIDE 108 mmol/L (98-107); CREATININE 1.06 mg/dL (0.55-1.02); POTASSIUM 4.5 mmol/L (3.5-5.1); SODIUM 140 mmol/L (136-145)
[2019-12-22 08:00] VITALS: BP 138/81
--- NOTE | 2019-12-22 08:15 | NUR ---
PT C/O ABDOMINAL PAIN, RATES PAIN 8 OR 9 ON PAIN SCALE 0-10. MEDICATED WITH DILAUDID IV PER PRN ORDER, SEE EMAR. TURNS SELF IN BED. CALL LIGHT IN REACH. SEE SHIFT ASSESSMENT.
--- NOTE | 2019-12-22 08:55 | NUR ---
Follow up appointment in wound care center with Ashwini ENGEL on 12/26/19 at 0900.
--- NOTE | 2019-12-22 10:40 | NUR ---
Occupational therapy orders received and chart reviewed. Patient was with a physician upon arrival. Will follow up. Kary Rooney OTR/L
--- NOTE | 2019-12-22 10:55 | NUR ---
DR. URIBE ON THE FLOOR AWARE OF BSG-593, REFLUX ORDERED. SEE EMAR.
[2019-12-22] MEDS ORDERED: VANCOMYCIN HCL125 MG PO (11:12)
[2019-12-22] MEDS ORDERED: LEVOFLOXACIN500 MG PO (11:12)
--- NOTE | 2019-12-22 11:24 | NUR ---
DR. URIBE ON THE FLOOR AWARE OF REFLUX. RECHECK SUGAR AT 1200.
--- NOTE | 2019-12-22 11:44 | NUR ---
BSG-[address] SHULTZ GIVE 5 UNITS NOW AND RECHECK IN 1/2 HOUR. GAVE 5 UNITS INSULIN, SEE EMAR. PT REFUSED TO TAKE DRESSINGS OFF FOR DISCHARGE PHOTOS ALSO.
--- NOTE | 2019-12-22 12:25 | NUR ---
Discharge instructions reviewed with patient/family. Patient receptive and verbalizes understanding. Follow-up care arranged. Written instructions given to patient/family. HEPLOCK REMOVED 2X2 2APPLIED. PT REFUSED TO TAKE DISCHARGE PHOTOS. SHE DIDN'T WANT DRESSINGS TAKEN OFF. VISITOR AT HER SIDE ESCORTED VIA WHEELCHAIR. DARIUSZ HDEZ R
--- NOTE | 2019-12-22 14:40 | NUR ---
Notified Shayy at [facility] of patient's discharge.
== END 2019-12-22 12:30 | disposition home health service (06) | DRG 720 ==
LOC: 5E 12:50
PROVIDERS: Internal Medicine; Student in an Organized Health Care Education/Training Program; ADMIT Internal Medicine
PROC: 0HB6XZZ Excision of Back Skin, External Approach (ICD-10-PCS; principal; 2019-12-21)
DX: A41.9 Sepsis, unspecified organism (principal); A04.72 Enterocolitis due to Clostridium difficile, not specified as recurrent; L89.619 Pressure ulcer of right heel, unspecified stage; E44.0 Moderate protein-calorie malnutrition; E86.1 Hypovolemia; N18.3 Chronic kidney disease, stage 3 (moderate); D50.9 Iron deficiency anemia, unspecified; L89.629 Pressure ulcer of left heel, unspecified stage; K21.9 Gastro-esophageal reflux disease without esophagitis; E11.22 Type 2 diabetes mellitus with diabetic chronic kidney disease; J44.9 Chronic obstructive pulmonary disease, unspecified; N39.0 Urinary tract infection, site not specified; F17.210 Nicotine dependence, cigarettes, uncomplicated; I12.9 Hypertensive chronic kidney disease with stage 1 through stage 4 chronic kidney disease, or unspecified chronic kidney disease; L89.153 Pressure ulcer of sacral region, stage 3; L89.322 Pressure ulcer of left buttock, stage 2; E11.65 Type 2 diabetes mellitus with hyperglycemia; F41.9 Anxiety disorder, unspecified; E11.621 Type 2 diabetes mellitus with foot ulcer; T83.518A Infection and inflammatory reaction due to other urinary catheter, initial encounter; Z68.34 Body mass index [BMI] 34.0-34.9, adult; Z93.59 Other cystostomy status; Z86.718 Personal history of other venous thrombosis and embolism; Z79.01 Long term (current) use of anticoagulants; Z86.14 Personal history of Methicillin resistant Staphylococcus aureus infection; Z90.710 Acquired absence of both cervix and uterus; Z90.49 Acquired absence of other specified parts of digestive tract; Z82.49 Family history of ischemic heart disease and other diseases of the circulatory system; Z88.6 Allergy status to analgesic agent; Z88.1 Allergy status to other antibiotic agents; Z88.8 Allergy status to other drugs, medicaments and biological substances; Z79.899 Other long term (current) drug therapy; N17.0 Acute kidney failure with tubular necrosis

== ENCOUNTER 2020-01-22 13:25 | Inpatient (IN) | payer OTHER ==
[2020-01-22] VITALS (8 sets, daily range): BP systolic 84–100; BP diastolic 40–57
[~2020-01-22] VITALS: Ht 151.1 cm; Wt 80.3 kg
[~2020-01-22 13:25] MED LIST changes: +ALBUTEROL2.5 MG/0.5 INH; +BUSPAR5 MG PO; +CARTIA XT180 MG PO; +CYCLOBENZAPRINE5 M3 PO; +GLUCOPHAGE1000 MG PO; +LEVOFLOXACIN500 MG PO; +METOPROLOL SUCC25 M2 PO; +TORSEMIDE10 MG PO; +VANCOMYCIN HCL125 MG PO; +ZOLOFT100 MG PO
[2020-01-22 14:10] LABS: BASO % 0.2 % (0.0-1.0); EOS # 0.2 10*3/uL (0.0-0.4); EOS % 1.4 % (1.0-4.0); HEMATOCRIT 31.6 % (37.0-47.0); LYMPH # 0.8 10*3/uL (1.3-4.4); LYMPH % 7.9 % (27.0-41.0); MEAN CELL VOLUME 79.8 fl (81.0-99.0); MEAN CORPUSCULAR HGB 25.3 pg (27.0-31.0); MEAN CORPUSCULAR HGB CONC 31.6 g/dl (33.0-37.0); MONO # 0.5 10*3/uL (0.1-1.0); NEUT # 8.9 10*3/uL (2.3-7.9); NEUT % 85.1 % (47.0-73.0); PLATELET COUNT AUTOMATED 221 10*3/uL (130-400); RED BLOOD COUNT 3.96 10*6/uL (4.10-5.10); RED CELL DISTRI WIDTH 14.4 % (0-14.5); WHITE BLOOD COUNT 10.4 10*3/uL (4.8-10.8)
[2020-01-22 14:10] LABS: ABG BASE EXCESS -0.3 mmol/L (-2.0-2.0); ARTERIAL BLOOD GAS PH 7.366 (7.35-7.45)
[2020-01-22 14:27] LABS: ALBUMIN 2.7 gm/dl (3.1-4.5); ALKALINE PHOSPHATASE 933 U/L (45-117); BUN 23 mg/dl (7-24); CHLORIDE 96 mmol/L (98-107); CREATININE 2.96 mg/dL (0.55-1.02); POTASSIUM 4.6 mmol/L (3.5-5.1); SGOT/AST 151 IU/L (3-35); SGPT/ALT 223 U/L (12-78); SODIUM 131 mmol/L (136-145)
[2020-01-22 14:28] LABS: TROPONIN I < 0.015 ng/ml (<0.045)
[2020-01-22 14:39] LABS: ACT PARTIAL THROMBO TIME 28.3 SECONDS (20.0-32.1)
[2020-01-22] MEDS ORDERED: ZOLOFT100 MG PO (16:04)
[2020-01-22] MEDS ORDERED: SEPTDS PO (16:06)
[2020-01-22] MEDS ORDERED: QUETIAPINE FUM200 M2 PO (16:12)
[2020-01-22] MEDS ORDERED: ELIQUIS5 M1 PO (16:14)
[2020-01-22 18:19] LABS: BILIRUBIN NEGATIVE (NEGATIVE); BLOOD 3+ (NEGATIVE); CLARITY SL CLOUDY (CLEAR); COLOR YELLOW (YELLOW); GLUCOSE TRACE (NEGATIVE); KETONE NEGATIVE (NEGATIVE); LEUKO ESTERASE NEGATIVE (NEGATIVE); NITRITE NEGATIVE (NEGATIVE); RBC 51-100 rbc/hpf (0-2); UROBILINOGEN 0.2 E.U./dl (0.2-1.0); WBC 16-20 wbc/hpf (0-5)
[2020-01-22 18:20] LABS: BACTERIA 2+; MUCOUS 1+
[2020-01-23] VITALS: BP 93/43
[2020-01-23 04:00] VITALS: BP 102/50
[2020-01-23 05:17] LABS: ALBUMIN 2.4 gm/dl (3.1-4.5); CREATININE 2.01 mg/dL (0.55-1.02); TOTAL PROTEIN 6.2 gm/dL (6.4-8.2)
[2020-01-23 05:24] LABS: THYROID STIM HORMONE (HS) 0.565 uIU/ml (0.358-4.75)
[2020-01-23 05:27] LABS: POTASSIUM 3.6 mmol/L (3.5-5.1)
[2020-01-23 06:10] LABS: BASO % 0.3 % (0.0-1.0); EOS # 0.2 10*3/uL (0.0-0.4); EOS % 2.6 % (1.0-4.0); HEMATOCRIT 28.4 % (37.0-47.0); HEMOGLOBIN 8.9 g/dl (12.0-16.0); LYMPH # 1.2 10*3/uL (1.3-4.4); LYMPH % 16.3 % (27.0-41.0); MEAN CELL VOLUME 81.8 fl (81.0-99.0); MEAN CORPUSCULAR HGB 25.6 pg (27.0-31.0); MEAN CORPUSCULAR HGB CONC 31.3 g/dl (33.0-37.0); MEAN PLATELET VOLUME 10.2 fl (9.6-12.3); MONO # 0.5 10*3/uL (0.1-1.0); MONO % 7.3 % (3.0-9.0); NEUT # 5.3 10*3/uL (2.3-7.9); NEUT % 73.1 % (47.0-73.0); PLATELET COUNT AUTOMATED 201 10*3/uL (130-400); RED BLOOD COUNT 3.47 10*6/uL (4.10-5.10); RED CELL DISTRI WIDTH 14.7 % (0-14.5); WHITE BLOOD COUNT 7.3 10*3/uL (4.8-10.8)
[2020-01-23 08:00] VITALS: BP 108/58
[2020-01-23 12:00] VITALS: BP 101/60
[2020-01-23 16:00] VITALS: BP 124/53
[2020-01-23 20:00] VITALS: BP 119/63
[2020-01-24] VITALS: BP 116/70
[2020-01-24 04:00] VITALS: BP 101/58
[2020-01-24 05:48] LABS: ALBUMIN 2.6 gm/dl (3.1-4.5); CREATININE 1.48 mg/dL (0.55-1.02); POTASSIUM 4.5 mmol/L (3.5-5.1)
[2020-01-24 06:13] LABS: BASO % 0.4 % (0.0-1.0); EOS # 0.3 10*3/uL (0.0-0.4); EOS % 3.5 % (1.0-4.0); HEMATOCRIT 29.3 % (37.0-47.0); HEMOGLOBIN 9.1 g/dl (12.0-16.0); LYMPH # 1.5 10*3/uL (1.3-4.4); LYMPH % 18.5 % (27.0-41.0); MEAN CELL VOLUME 82.5 fl (81.0-99.0); MEAN CORPUSCULAR HGB 25.6 pg (27.0-31.0); MEAN CORPUSCULAR HGB CONC 31.1 g/dl (33.0-37.0); MEAN PLATELET VOLUME 10.2 fl (9.6-12.3); MONO # 0.6 10*3/uL (0.1-1.0); MONO % 7.2 % (3.0-9.0); NEUT # 5.7 10*3/uL (2.3-7.9); NEUT % 69.3 % (47.0-73.0); PLATELET COUNT AUTOMATED 241 10*3/uL (130-400); RED BLOOD COUNT 3.55 10*6/uL (4.10-5.10); RED CELL DISTRI WIDTH 15.2 % (0-14.5); WHITE BLOOD COUNT 8.3 10*3/uL (4.8-10.8)
[2020-01-24 07:05] LABS: HEPATITIS B SURFACE AG Negative (Negative); HEPATITIS C VIRUS ANTIBODY <0.1 s/co (0.0-0.9)
[2020-01-24 08:00] VITALS: BP 103/74
[2020-01-24 12:00] VITALS: BP 114/80
[2020-01-24 16:00] VITALS: BP 132/74
[2020-01-24 20:00] VITALS: BP 113/70
[2020-01-25] VITALS: BP 114/63
[2020-01-25 04:00] VITALS: BP 124/78
[2020-01-25 05:18] LABS: CREATININE 1.19 mg/dL (0.55-1.02); POTASSIUM 4.2 mmol/L (3.5-5.1)
[2020-01-25 06:13] LABS: BASO % 0.4 % (0.0-1.0); EOS # 0.3 10*3/uL (0.0-0.4); HEMATOCRIT 28.3 % (37.0-47.0); HEMOGLOBIN 8.4 g/dl (12.0-16.0); LYMPH # 1.6 10*3/uL (1.3-4.4); LYMPH % 19.4 % (27.0-41.0); MEAN CELL VOLUME 83.5 fl (81.0-99.0); MEAN CORPUSCULAR HGB 24.8 pg (27.0-31.0); MEAN CORPUSCULAR HGB CONC 29.7 g/dl (33.0-37.0); MEAN PLATELET VOLUME 10.2 fl (9.6-12.3); MONO # 0.5 10*3/uL (0.1-1.0); MONO % 5.9 % (3.0-9.0); NEUT # 5.9 10*3/uL (2.3-7.9); NEUT % 70.7 % (47.0-73.0); PLATELET COUNT AUTOMATED 232 10*3/uL (130-400); RED BLOOD COUNT 3.39 10*6/uL (4.10-5.10); RED CELL DISTRI WIDTH 15.3 % (0-14.5); WHITE BLOOD COUNT 8.3 10*3/uL (4.8-10.8)
[2020-01-25 08:00] VITALS: BP 129/71
[2020-01-25 12:00] VITALS: BP 119/67
[2020-01-25] MEDS ORDERED: MAXIPIME2 G1 IJ (15:49)
[2020-01-25 16:00] VITALS: BP 126/77
[2020-01-25 20:00] VITALS: BP 121/73
[2020-01-26] VITALS: BP 118/63
[2020-01-26 04:00] VITALS: BP 110/70
[2020-01-26 07:48] VITALS: BP 124/76
== END 2020-01-26 08:32 | disposition other institution (70) | DRG 710 ==
LOC: ED 13:25 → EDHOLD 14:48 → ICCU 14:48 → EDHOLD 15:22 → ICCU 15:35 → 4E 01-25 18:32 → ICCU 01-25 18:37
PROVIDERS: Emergency Medicine; Family Medicine; Internal Medicine; ADMIT Emergency Medicine
PROC: 0QBS0ZZ Excision of Coccyx, Open Approach (ICD-10-PCS; principal; 2020-01-23)
DX: A41.9 Sepsis, unspecified organism (principal); N17.0 Acute kidney failure with tubular necrosis; E43 Unspecified severe protein-calorie malnutrition; G93.41 Metabolic encephalopathy; L89.153 Pressure ulcer of sacral region, stage 3; E87.1 Hypo-osmolality and hyponatremia; L89.619 Pressure ulcer of right heel, unspecified stage; E88.09 Other disorders of plasma-protein metabolism, not elsewhere classified; L89.629 Pressure ulcer of left heel, unspecified stage; E11.65 Type 2 diabetes mellitus with hyperglycemia; N39.0 Urinary tract infection, site not specified; D50.9 Iron deficiency anemia, unspecified; I95.9 Hypotension, unspecified; E11.59 Type 2 diabetes mellitus with other circulatory complications; J44.9 Chronic obstructive pulmonary disease, unspecified; M54.5 Low back pain; G89.29 Other chronic pain; M79.2 Neuralgia and neuritis, unspecified; E11.51 Type 2 diabetes mellitus with diabetic peripheral angiopathy without gangrene; K21.9 Gastro-esophageal reflux disease without esophagitis; K22.719 Barrett's esophagus with dysplasia, unspecified; F41.9 Anxiety disorder, unspecified; F32.9 Major depressive disorder, single episode, unspecified; F17.210 Nicotine dependence, cigarettes, uncomplicated; E66.9 Obesity, unspecified; I12.9 Hypertensive chronic kidney disease with stage 1 through stage 4 chronic kidney disease, or unspecified chronic kidney disease; N18.4 Chronic kidney disease, stage 4 (severe); E11.22 Type 2 diabetes mellitus with diabetic chronic kidney disease; R74.0 Nonspecific elevation of levels of transaminase and lactic acid dehydrogenase [LDH]; Z79.4 Long term (current) use of insulin; Z86.718 Personal history of other venous thrombosis and embolism; Z88.6 Allergy status to analgesic agent; Z68.35 Body mass index [BMI] 35.0-35.9, adult; Z88.1 Allergy status to other antibiotic agents; Z88.8 Allergy status to other drugs, medicaments and biological substances; Z79.899 Other long term (current) drug therapy; Z90.49 Acquired absence of other specified parts of digestive tract; Z82.49 Family history of ischemic heart disease and other diseases of the circulatory system

== ENCOUNTER 2020-01-30 17:45 | Inpatient (IN) | payer OTHER ==
[~2020-01-30] VITALS: Ht 149.9 cm; Wt 79.5 kg
[~2020-01-30 17:45] MED LIST changes: +ELIQUIS5 M1 PO; +MAXIPIME2 G1 IJ; +QUETIAPINE FUM200 M2 PO
[2020-01-30 18:00] VITALS: BP 153/77
[2020-01-30 19:05] LABS: BASO % 0.5 % (0.0-1.0); EOS # 0.2 10*3/uL (0.0-0.4); HEMATOCRIT 30.7 % (37.0-47.0); HEMOGLOBIN 9.6 g/dl (12.0-16.0); LYMPH # 1.1 10*3/uL (1.3-4.4); LYMPH % 13.8 % (27.0-41.0); MEAN CELL VOLUME 81.2 fl (81.0-99.0); MEAN CORPUSCULAR HGB 25.4 pg (27.0-31.0); MEAN CORPUSCULAR HGB CONC 31.3 g/dl (33.0-37.0); MEAN PLATELET VOLUME 9.6 fl (9.6-12.3); MONO # 0.7 10*3/uL (0.1-1.0); MONO % 8.8 % (3.0-9.0); NEUT # 5.7 10*3/uL (2.3-7.9); NEUT % 72.1 % (47.0-73.0); PLATELET COUNT AUTOMATED 320 10*3/uL (130-400); RED BLOOD COUNT 3.78 10*6/uL (4.10-5.10); RED CELL DISTRI WIDTH 15.2 % (0-14.5); WHITE BLOOD COUNT 7.9 10*3/uL (4.8-10.8)
[2020-01-30 19:20] LABS: ALBUMIN 3.2 gm/dl (3.1-4.5); CREATININE 1.21 mg/dL (0.55-1.02); POTASSIUM 4.3 mmol/L (3.5-5.1); TOTAL PROTEIN 7.7 gm/dL (6.4-8.2)
[2020-01-30 20:00] VITALS: BP 151/86
[2020-01-30 20:15] VITALS: BP 151/86
--- NOTE | 2020-01-30 20:15 | NUR ---
Time: 2014 A 49 year old FEMALE admitted to 5E under services of DR. TEJA GREENE,OZZY. Pt. arrived via bed from ER. Chief complaint: WOUND DRAINAGE/PAIN. PRIOR ADMINISTRATION OF FLU AND PNEUMONIA VACCINES. WOUNDS PRESENT TO LEFT OUTER ASPECT OF HEEL, RIGHT OUTER ASPECT OF HEEL, AND COCCYX. HEEL WOUNDS VISUALIZED AND MEASURED. PT REFUSED PICTURES/MEASUREMENTS OF THE COCCYX WOUND ON ADMISSION. DR HINOJOSA/JUAN NOTIFIED OF NEED FOR WOUND ORDERS. LUZ MARIA VAZQUEZ
--- NOTE | 2020-01-30 22:19 | NUR ---
DILAUDID ADMINISTERED FOR 9/10 BILATERAL HEEL PAIN. WILL CONTINUE TO MONITOR AND REASSESS,
[2020-01-30 22:31] LABS: BILIRUBIN NEGATIVE (NEGATIVE); BLOOD TRACE-INTACT (NEGATIVE); CLARITY CLEAR (CLEAR); COLOR YELLOW (YELLOW); GLUCOSE TRACE (NEGATIVE); KETONE NEGATIVE (NEGATIVE); LEUKO ESTERASE 1+ (NEGATIVE); NITRITE NEGATIVE (NEGATIVE); UROBILINOGEN 0.2 E.U./dl (0.2-1.0)
--- NOTE | 2020-01-30 22:37 | NUR ---
DR MARTINEZ NOTIFIED OF UPDATED MED REC.
[2020-01-30 22:39] LABS: YEAST 1+
--- NOTE | 2020-01-30 23:31 | NUR ---
SPOKE WITH RESIDENT DR LEWIS REGARDING NEW PATIENT CONSULT. STATES THAT ANTIBIOTIC THERAPY IS OKAY FOR NOW AND THAT PODIATRY WILL SEE THE PT IN THE MORNING. NOTIFIED OF BILATERAL FOOT XRAY RESULTS. NO NEW ORDERS AT THIS TIME.
--- NOTE | 2020-01-30 23:51 | NUR ---
PT STILL COMPLAINING OF 9/[address] MARTINEZ NOTIFIED, STATES TO INCREASE DILAUDID 1 MG FROM Q8H TO Q6H AND TO GIVE ANOTHER 1 MG NOW. STATES THAT HOME MEDICATION OXYCODONE CAN BE CONTINUED WELL.
[2020-01-30] MEDS ORDERED: OXYCODONE HCL15 MG PO (23:57)
[2020-01-31] VITALS: BP 150/75
--- NOTE | 2020-01-31 00:32 | NUR ---
ONE TIME DOSE OF 1 MG DILAUDID ADMINISTERED FOR CONTINUING 9/10 BILATERAL HEEL PAIN. WILL CONTINUE TO MONITOR.
--- NOTE | 2020-01-31 01:26 | NUR ---
ON ENTRY TO ROOM, PATIENT RESTING WITH EYES CLOSED. PT APPEARS RELAXED BUT WOKE UP AND STATED THAT SHE "IS MISERABLE". WILL CONTINUE TO MONITOR.
--- NOTE | 2020-01-31 03:48 | NUR ---
PT ASLEEP AT THIS TIME. NO SIGNS OF DISCOMFORT OR DISTRESS NOTED.
--- NOTE | 2020-01-31 05:00 | NUR ---
SPOKE WITH DR LEWIS, STATES TO MAKE PATIENT NPO UNTIL SHE IS ABLE TO ASSESS HER IN CASE THERE'S A NEED FOR SURGERY. STATES SHE WILL SEE THE PATIENT THIS MORNING.
--- NOTE | 2020-01-31 05:39 | NUR ---
BROOKE SPICER [id number] Please refer to the physician's history and physical for past medical history, comorbid conditions, and allergies. Diagnosis: WOUND INFECTION,OSTEOMYELITIS Sven Score: 14,MODERATE RISK WOUND DESCRIPTIONS: Wound Number: 1 Location of the wound: left outer aspect of heel Type of wound: unstageable Thickness: Full Size: 5.5cm x 7.5cm x 0.1cm Tunneling: none Undermining: none Sinus Tract: none Presence of Exudate: Serosanguineous Amount: Light Color: Black, yellow, red Odor: Medium Periwound Skin Appearance: Erythema Wound edges: approximated Pain (associated with wound): tender to touch How does patient state this happened? pt states she went to [place] for the angiogram and they wanted her to have one leg done at a time and she stated she refused and saw her physician Dr. Moreno as well as Dr. Jones who sent her into the hospital. She stated Dr. Lowery stated that she has good flow because she has pulses. She stated that Dr. Rodriguez stated that she needs to focus on strong antibiotics, picc line, diabetes and good wound care before any procedures can happened. She states that she didn't want to take Dr. Cardoza word that she needed intervention done at this time. She states Dr. Jones will set up all of her appointment upon discharge and that she follows with his in the resident clinic. Wound Number: 2 Location of the wound: right outer aspect of heel Type of wound: unstageable Thickness: Full Size: 5.5cm x 7.5cm x 0.1cm Tunneling: none Undermining: none Sinus Tract: none Presence of Exudate: Serosanguineous Amount: Light Color: Black, yellow, red Odor: Medium Periwound Skin Appearance: Erythema Wound edges: approximated Pain (associated with wound): tender to touch How does patient state this happened? pt states she went to [place] for the angiogram and they wanted her to have one leg done at a time and she stated she refused and saw her physician Dr. Moreno as well as Dr. Jones who sent her into the hospital. She stated Dr. Lowery stated that she has good flow because she has pulses. She stated that Dr. Rodriguez stated that she needs to focus on strong antibiotics, picc line, diabetes and good wound care before any procedures can happened. She states that she didn't want to take Dr. Cardoza word that she needed intervention done at this time. She states Dr. Jones will set up all of her appointment upon discharge and that she follows with his in the resident clinic. Wound Number: 3 Location of the wound: coccyx Type of wound: stage 3 Thickness: Full Size: 5.5cm x 7.5cm x 0.1cm Tunneling: none Undermining: none Sinus Tract: none Presence of Exudate: Serosanguineous Amount: Light Color: Yellow, red Odor: none Periwound Skin Appearance: Scar Wound edges: approximated Pain (associated with wound): tender to touch How does patient state this happened? pt states she has no open wound to buttocks she states she will follow with Ashwini ENGEL for debridement if needed. patient incontinent of stool at time of assessment. Pericare provided with Emily RN Surface the patient is resting on: Isoflex SKIN PREVENTION RECOMMENDATION: 1. Pressure redistribution support surface as appropriate 2. Elevate heels 3. Remove boots/TEDS every shift and reapply 4. Head of bed 30 degrees as tolerated 5. Assess nutrition and hydration 6. Manage moisture 7. Avoid the use of containment devices while in bed 8. Use absorptive products on surfaces limit layers of linens on bed 9. Turn and reposition every 1-2 hours in bed and every 1 hour in chair as tolerated 10. Weight shifts every 15 minutes while up in chair 11. Offloading with pillows or device to keep heels elevated off bed 12. Monitor skin at least every shift 13. Inspect under medical devices twice a day WOUND TREATMENT RECOMMENDATIONS: Podiatry and ID are already on consult. Patient had anigogram at [place] with Dr. Kimball on 01/27/2020. Patient had arterial studies completed on 12/21/19 consult vascular. Cleanse bilateral heels with nss and apply betadine soaked adaptic cover with dsd daily and prn for soiling. Consult Ashwini MANN-VANESSA for possible debridement to coccyx. Cleanse coccyx with nss and apply sureprep around the wound therahoney to wound and cover with optifoam gentle daily and prn for soiling. Heel raiser pro boots to bilateral feet while in bed Wheelchair cushion when oob.
[2020-01-31 06:14] LABS: BASO % 0.3 % (0.0-1.0); EOS # 0.2 10*3/uL (0.0-0.4); EOS % 2.7 % (1.0-4.0); HEMATOCRIT 30.5 % (37.0-47.0); HEMOGLOBIN 9.4 g/dl (12.0-16.0); MEAN CORPUSCULAR HGB 25.3 pg (27.0-31.0); MEAN CORPUSCULAR HGB CONC 30.8 g/dl (33.0-37.0); MEAN PLATELET VOLUME 9.8 fl (9.6-12.3); MONO # 0.2 10*3/uL (0.1-1.0); MONO % 2.5 % (3.0-9.0); NEUT # 6.2 10*3/uL (2.3-7.9); NEUT % 80.2 % (47.0-73.0); PLATELET COUNT AUTOMATED 350 10*3/uL (130-400); RED BLOOD COUNT 3.72 10*6/uL (4.10-5.10); RED CELL DISTRI WIDTH 15.4 % (0-14.5); WHITE BLOOD COUNT 7.7 10*3/uL (4.8-10.8)
--- NOTE | 2020-01-31 06:16 | NUR ---
NEW PATIENT CONSULT CALLED INTO ANSWERING SERVICE FOR DR GARNICA.
[2020-01-31 06:23] LABS: INTERNATIONAL NORM RATIO 0.9 (2.0-3.5)
[2020-01-31 06:43] LABS: ALBUMIN 2.9 gm/dl (3.1-4.5); ALKALINE PHOSPHATASE 519 U/L (45-117); BUN 13 mg/dl (7-24); CHLORIDE 108 mmol/L (98-107); CREATININE 1.03 mg/dL (0.55-1.02); PHOSPHOROUS 3.6 mg/dL (2.5-4.9); POTASSIUM 3.8 mmol/L (3.5-5.1); SGOT/AST 65 IU/L (3-35); SGPT/ALT 70 U/L (12-78); SODIUM 140 mmol/L (136-145); TOTAL PROTEIN 7.2 gm/dL (6.4-8.2)
[2020-01-31 08:00] VITALS: BP 138/86
--- NOTE | 2020-01-31 08:43 | NUR ---
Dr. Rincon notified of wound care recommendations.
--- NOTE | 2020-01-31 09:00 | NUR ---
Director Of Photography in to see patient. Dr. Jackman and Dr. Jones are currently in patient's room. Will follow up at a later time.
--- NOTE | 2020-01-31 09:31 | NUR ---
ATIVAN GIVEN FOR ANXIETY/CLAUSTROPHOBIA. OFF FLOOR FOR MRI AT THIS TIME.
--- NOTE | 2020-01-31 09:48 | NUR ---
CALLED IN. ORDERED TO STOP CORNELIUS FOR TIME BEING.
--- NOTE | 2020-01-31 11:07 | NUR ---
BACK TO FLOOR FROM MRI
[2020-01-31 12:00] VITALS: BP 142/76
--- NOTE | 2020-01-31 12:41 | NUR ---
CALLED PER PT REQUEST TO INCREASE DILAUDID TO Q4H INSTEAD OF Q6H. NO NEW ORDERS REC'D. ASKED TO CALL AGAIN IF PT STILL C/O PAIN AFTER 2ND DOSE WHICH IS AVAILABLE ARND 1440 TODAY.
--- NOTE | 2020-01-31 13:02 | NUR ---
REQUESTING DILAUDID BE GIVEN EARLY AT THIS TIME. STATES HER "HEELS ARE ON FIRE AND PAIN IS VERY INTENSE."ASKED THAT DOCTOR BE CALLED SO THAT DILAUDID CAN BE GIVEN.
--- NOTE | 2020-01-31 13:09 | NUR ---
PER . OK TO GIVE DOSE OF DILAUDID EARLY. SEE MAR. WILL REASSES AFTER TALKING WITH ON FREQUENCY.
--- NOTE | 2020-01-31 13:17 | NUR ---
IV TO LEFT HAND INFILTRATED. DISCONTINUED. WILL RESTART NEW IV.
--- NOTE | 2020-01-31 14:59 | NUR ---
COCCYX DEBRIDEMENT DONE BY BRINA LA TODAY. TOLERATED WELL. DRSG TO COCCYX IN PLACE. CALL LIGHT IN REACH.
--- NOTE | 2020-01-31 15:45 | NUR ---
PHYSICAL THERAPY Screen and PT eval received will follow thank you Erma Nick PT
[2020-01-31 16:00] VITALS: BP 112/64
--- NOTE | 2020-01-31 16:43 | NUR ---
PULLED IV OUT ON ACCIDENT. WILL ATTEMPT TO REESTABLISH.
--- NOTE | 2020-01-31 18:15 | NUR ---
NEW IV REESTABLISHED TO RT [facility]. IVF GOING WITH EASE. WILL MONITOR. CALL LIGHT IN REACH.
[2020-01-31 20:00] VITALS: BP 134/63
--- NOTE | 2020-01-31 20:02 | NUR ---
PATIENT STILL COMPLAINING OF 9/10 BILATERAL HEEL PAIN. RECEIVED OXYCODONE CLOSE TO 5 PM, STATES THAT IT WASN'T EFFECTIVE AND WOULD LIKE TO RECEIVE THE DILAUDID SHE GOT YESTERDAY EVENING. PT EXPRESSES THAT SHE "NEEDS TO SLEEP, AND THAT DILAUDID DID THE TRICK". DR EAST NOTIFIED. AWAITING NEW ORDERS.
--- NOTE | 2020-01-31 21:00 | NUR ---
PT STATES THAT SHE DOESN'T WANT WOKEN UP FOR ANYTHING THIS EVENING, AND WOULD RATHER CATCH UP ON SLEEP FOR HER PROCEDURE IN THE AM. WILL MONITOR.
--- NOTE | 2020-01-31 21:53 | NUR ---
DILAUDID ADMINISTERED FOR C/O 9/10 BILATERAL HEEL PAIN. PT RESTING COMFORTABLY IN BED AT THIS TIME, NO EVIDENCE OF OVERT DISTRESS. WILL MONITOR. ZOFRAN ADMINISTERED PER REQUEST OF PT FOR INTERMITTENT NAUSEA.
--- NOTE | 2020-01-31 23:10 | NUR ---
PT ASLEEP AT THIS TIME, NO SIGNS OF DISCOMFORT OR DISTRESS NOTED.
[2020-02-01] VITALS (9 sets, daily range): BP systolic 109–155; BP diastolic 56–84
--- NOTE | 2020-02-01 05:29 | NUR ---
DILAUDID ADMINISTERED FOR PT C/O 07/09 LOWER BACK PAIN AND BILATERAL HEEL PAIN. WILL CONTINUE TO MONITOR AND REASSESS.
--- NOTE | 2020-02-01 06:24 | NUR ---
PT ASLEEP AT THIS TIME. NO SIGNS OF DISCOMFORT OR DISTRESS.
--- NOTE | 2020-02-01 09:00 | NUR ---
Patient states lives at home with her daughter. There are no steps in the home. Physician: Dr. Alida De La Rosa [facility]: [facility] Home health services: currently has [facility] RN/PT/OT and would like to resume those services upon discharge. Mom[employer] meals delivery. [facility] services. Patient's level of ADLs: MAX ASSIST Patient has working utilities: yes DME: wheelchair, walker Follow-up physician's appointment after d/c: will be made by the hospitalist nurse director upon discharge Does patient want to access PORTAL?: no Discharge plan discussed with patient. She lives at home with her daughter. She needs assistance with her ADLs and ambulates with a walker or gets around in her wheelchair. Discussed short term SNF and she is unsure of what she will need after her surgery today. She states she could need another surgery after that. She would think about a SNF. Discussed home health care services and she currently has [facility] and would like to resume those services upon discharge. [facility] and her case assistant is Rolanda Gordon. Discharge plan is undecided at this time. ZENOBIA GREEN
--- NOTE | 2020-02-01 09:00 | NUR ---
Nursing screen and occupational therapy orders received. Will follow up with patient for OT evaluation. Thank you. Kary Rooney, OTR/L
--- NOTE | 2020-02-01 11:15 | NUR ---
Occupational therapy orders received and chart reviewed. Patient was out of the room at surgery at surgery per nursing. Will follow up with patient when available. Kary Rooney OTR/L
--- NOTE | 2020-02-01 11:15 | NUR ---
PHYSICAL THERAPY Attempted to see pt however unavailable out of room for surgical procedure I&D w bone biopsy LE's. Will follow await update from podiatry reg any weight bearing restrictions. Erma Nick PT
--- NOTE | 2020-02-01 14:50 | NUR ---
PT MEDICATED WITH PRN DILAUDID FOR C/O BILATERAL CALF/HEEL PAIN THAT SHE REATES 09/08. WILL MONITOR.
--- NOTE | 2020-02-01 14:59 | NUR ---
PT MEDICATED WITH PRN XANAX FOR C/O INCREASED ANXIETY, WILL MONITOR.
--- NOTE | 2020-02-01 22:51 | NUR ---
PT MEDICATED WITH PRN TYLENOL FOR INCREASED TEMPERATURE. WILL MONITOR FOR EFFECTIVENESS.
--- NOTE | 2020-02-01 23:30 | NUR ---
PTS TEMP NOW 98.9. PRN TYLENOL EFFECTIVE
[2020-02-02] VITALS: BP 127/52
[2020-02-02 06:20] LABS: BASO % 0.3 % (0.0-1.0); EOS # 0.2 10*3/uL (0.0-0.4); HEMATOCRIT 27.2 % (37.0-47.0); HEMOGLOBIN 8.1 g/dl (12.0-16.0); LYMPH # 1.3 10*3/uL (1.3-4.4); LYMPH % 19.8 % (27.0-41.0); MEAN CELL VOLUME 84.2 fl (81.0-99.0); MEAN CORPUSCULAR HGB 25.1 pg (27.0-31.0); MEAN CORPUSCULAR HGB CONC 29.8 g/dl (33.0-37.0); MEAN PLATELET VOLUME 9.7 fl (9.6-12.3); MONO # 0.5 10*3/uL (0.1-1.0); MONO % 7.4 % (3.0-9.0); NEUT # 4.5 10*3/uL (2.3-7.9); NEUT % 68.9 % (47.0-73.0); PLATELET COUNT AUTOMATED 298 10*3/uL (130-400); RED BLOOD COUNT 3.23 10*6/uL (4.10-5.10); RED CELL DISTRI WIDTH 15.9 % (0-14.5); WHITE BLOOD COUNT 6.6 10*3/uL (4.8-10.8)
[2020-02-02 06:46] LABS: BUN 9 mg/dl (7-24); CHLORIDE 109 mmol/L (98-107); POTASSIUM 4.5 mmol/L (3.5-5.1); SODIUM 141 mmol/L (136-145)
[2020-02-02 06:47] LABS: CREATININE 1.05 mg/dL (0.55-1.02)
[2020-02-02 08:00] VITALS: BP 132/60
--- NOTE | 2020-02-02 09:00 | NUR ---
Spring Coiler Hand in to see patient. Medical team in room. Discussed short term SNF and she refuses. Discussed home health care services and she is agreeable. She had [facility] prio to coming into the hospital and would like their services again. Asked who was going to help car for her at home and she stated her daughter, , and step-son. Asked who was going to administer home IV antibiotics and she stated she would as she has done them in the past. She verbalized an understanding that she is to be NWB on both heels. When medically stable, wound vacs and IV antibiotics are available she will be discharged to home with [facility] services.
--- NOTE | 2020-02-02 09:28 | NUR ---
Notified Dr. Juve Lockwood of the need for 2 [employer] wound vac forms to be completed for the patient to be discharged to home.
--- NOTE | 2020-02-02 10:14 | NUR ---
Faxed [employer] wound vac forms x 2 to [facility]. Awaiting response.
--- NOTE | 2020-02-02 11:20 | NUR ---
GAVE PATIENT SCHEDULED DOSE OF OXY PERSCRIBED AT SCHEDULED TIME, PATIENT ASKED FOR PRN DOSE FOR BREAKTHROUGH PAIN. SHE STATED SHE USUALLY TAKES MOR AND IS NOT FINDING THE DOSE EFFECTIVE ENOUGH.
[2020-02-02 12:00] VITALS: BP 135/60
--- NOTE | 2020-02-02 13:31 | NUR ---
Faxed [facility] wound vac form to [facility]. Awaiting response.
[2020-02-02 16:00] VITALS: BP 145/74
--- NOTE | 2020-02-02 16:37 | NUR ---
PT REPORTS PAIN RELIEF FOR PRESCRIBED OXYCODONE NUT THE DOSE DID NOT LAST LONG ENOUGH TO KEEP PAIN SUBSIDED. GAVE PRN DOSE AND PATIENT STATED SHE FELT NO RELIEF. PHINED DR HERNANDEZ. HE CHANGED PRN DOSE TIMES TO Q 4 HOURS. PATIENT IS REPORTING PAIN RELIEF AT THIS TIME. SHE HAD REFUSED ULTRASOUND OF BLE UNTIL PAIN MEDS GAVE RELIEF. STATES SHE FEELS SHE CAN GO FOR [employer] SOUND NOW, PAIN IS SUBSIDED.
--- NOTE | 2020-02-02 18:45 | NUR ---
NOTIFED REGARDING PATIENT RETURNING TO ROOM FROM SCHEDULED U/S.
[2020-02-02 20:00] VITALS: BP 151/67
[2020-02-03] VITALS: BP 113/59
--- NOTE | 2020-02-03 | NUR ---
RESTING IN BED WITH EYES CLOSED; AROUSES EASILY FOR ASSESSMENT. TOOK PO MEDICATION WITHOUT DIFFICULTY; VOICES NO C/O AT THIS TIME. CALL LIGHT WITHIN REACH.
--- NOTE | 2020-02-03 05:08 | NUR ---
MEDICATED WITH OXYCODONE FOR C/O PAIN. BLOOD SUGAR 82. NO COVERAGE REQUIRED. CALL LIGHT WITHIN REACH.
[2020-02-03 06:52] LABS: BASO % 0.4 % (0.0-1.0); EOS # 0.3 10*3/uL (0.0-0.4); EOS % 4.9 % (1.0-4.0); LYMPH # 1.9 10*3/uL (1.3-4.4); LYMPH % 36.1 % (27.0-41.0); MEAN CELL VOLUME 86.3 fl (81.0-99.0); MEAN CORPUSCULAR HGB 25.6 pg (27.0-31.0); MEAN CORPUSCULAR HGB CONC 29.6 g/dl (33.0-37.0); MEAN PLATELET VOLUME 9.2 fl (9.6-12.3); MONO # 0.3 10*3/uL (0.1-1.0); MONO % 5.6 % (3.0-9.0); NEUT # 2.8 10*3/uL (2.3-7.9); NEUT % 52.6 % (47.0-73.0); PLATELET COUNT AUTOMATED 248 10*3/uL (130-400); RED BLOOD COUNT 3.13 10*6/uL (4.10-5.10); WHITE BLOOD COUNT 5.3 10*3/uL (4.8-10.8)
[2020-02-03 07:04] LABS: BUN 12 mg/dl (7-24); CHLORIDE 114 mmol/L (98-107); CREATININE 0.87 mg/dL (0.55-1.02); POTASSIUM 4.4 mmol/L (3.5-5.1); SODIUM 143 mmol/L (136-145)
[2020-02-03 08:00] VITALS: BP 99/56
--- NOTE | 2020-02-03 08:02 | NUR ---
PHYSICAL THERAPY Attempted to see pt for evaluation she states she is in too much pain LB and and LE's. Spoke with primary nurse Danette to have pain meds at 10 will follow between 10:30 and 11:00 Erma Nick PT
--- NOTE | 2020-02-03 08:02 | NUR ---
Patient declined occupational therapy as this time d/t too much pain in low back and BLEs. OTR will return for evaluation at 10:30. Patient in agreement. Lainey Dior OTR/l
--- NOTE | 2020-02-03 10:25 | NUR ---
Occupational Therapy evaluation completed on 5 with full evaluation to follow. Recommend occupational therapy per plan of care and SNF upon discharge. If patient continues to refuse then paul hines w/ home health OT,PT, SN. Thank you for this referral. Lainey Dior OTR/l
--- NOTE | 2020-02-03 11:26 | NUR ---
Spoke to Vipul at [facility]. They have received the wound vac orders as of yesterday at 3:59pm. The case is currently pending with no scheduled delivery time to the hospital.
--- NOTE | 2020-02-03 11:39 | NUR ---
Physical Therapy evaluation completed full evaluation to follow. Recommend physical therapy per plan of care and SNF upon discharge. Pt is to be NWB of BLE s/p I&D with bilateral wound vacs, also has stage II on coccyx area. Discussed use of [facility] at home w ambulance service to enter home as pt refusing any type of rehab/snf. Discussed above with case management. Thank you for this referral. Erma Nick PT
--- NOTE | 2020-02-03 11:56 | NUR ---
Slide Fastener Repairer in to see patient. Discussed therapy suggesting a paul lift at home. She is agreeable. She is requesting discharge today. Explained authorization for her wound vac has not been received. She doesn't care whether the wound vac comes in today or not her anxiety level is elevated and she just wants to go home and relax. Also waiting on IV antibiotics. Hospitalist nurse director notified.
[2020-02-03 12:00] VITALS: BP 136/65
--- NOTE | 2020-02-03 12:26 | NUR ---
Faxed home health order to [facility]
--- NOTE | 2020-02-03 12:30 | NUR ---
Wound vac will be here at the hospital between 4-5pm
--- NOTE | 2020-02-03 13:19 | NUR ---
Faxed Pierce lift prescription to [facility]
[2020-02-03 14:09] LABS: ACID FAST SPEC PROCESSING Tissue Grinding (.)
[2020-02-03 14:09] LABS: ACID FAST SPEC PROCESSING Tissue Grinding (.)
[2020-02-03 14:09] LABS: ACID FAST SPEC PROCESSING Tissue Grinding (.)
[2020-02-03 14:09] LABS: ACID FAST SPEC PROCESSING Tissue Grinding (.)
--- NOTE | 2020-02-03 15:53 | NUR ---
Received call from Shayy at [facility] regarding patient discharging today. Informed patient's IV antibiotics are not set up. Waiting on Dr. Yan. Will revisit with Shayy on Thursday.
[2020-02-03 16:00] VITALS: BP 127/63
[2020-02-03] MEDS ORDERED: ZOSYN 3.373.375 GM/1 IV (16:42)
[2020-02-03] MEDS ORDERED: GLIPIZIDE5 MG PO (16:42)
[2020-02-03] MEDS ORDERED: OXYCODONE HCL5 MG PO (17:45)
--- NOTE | 2020-02-03 19:07 | NUR ---
Discharge instructions reviewed with patient/family. Patient receptive and verbalizes understanding. Follow-up care arranged. Written instructions given to patient/family. GENEVIEVE ADAM
--- NOTE | 2020-02-06 07:37 | NUR ---
Faxed prescription for Zosyn 3.375 GM IV q8h to [facility]. Awaiting response.
--- NOTE | 2020-02-06 08:28 | NUR ---
Spoke to Shayy at [facility] regarding patient discharging Thursday evening and Zosyn prescription sent to [facility] this morning. She will give [facility] about an hour then reach out to them.
--- NOTE | 2020-02-06 09:00 | NUR ---
Received call from Tamar at [facility]. They have to clear admission through the general sales manager due to previous non-compliance issues. Awaiting return call. Notified Shayy at [facility].
--- NOTE | 2020-02-06 10:34 | NUR ---
Received call from Tamar at [facility] regarding they are unable to take the patient due to noncompliance issues. She states the patient actually still has one of their pumps but they are unsuccessful at reaching her. Faxed prescription and clinical to [facility].
--- NOTE | 2020-02-06 12:00 | NUR ---
Received call from patient regarding home IV antibiotics and home health care. Informed [facility] was notified this morning regarding patient discharging late Thursday. Discussed home IV antibiotics and [employer] stating they were not able to take the patient due to her noncompliance. Patient stated she was going to look up the company name that had her last and the phone number and return call to . Awaiting return call.
--- NOTE | 2020-02-06 12:50 | NUR ---
Spoke to Antonia from [facility]. They are still running benefits. Antonia will let know benefits when she does.
--- NOTE | 2020-02-06 16:01 | NUR ---
Spoke to Shayy at [facility] regarding not hearing anything back from [facility] yet regarding IV home antibiotics. Shayy will reach out to [facility].
--- NOTE | 2020-02-07 06:51 | NUR ---
Received message that [facility] is out of network with patient's insurance, they have forwarded the prescription to [facility]. Awaiting response.
--- NOTE | 2020-02-07 10:29 | NUR ---
Received call from Tracy Hernandez at [facility] regarding prescription for paul lift. Faxed new information requested. She states it will be delivered on .
--- NOTE | 2020-02-07 12:22 | NUR ---
Received call from Mirella at [facility] regarding home IV antibiotics. Patient has 100% coverage. Notified Keerthi at [facility] and hospitalist nurse director.
--- NOTE | 2020-02-07 13:26 | NUR ---
Received call back from Mirella at [facility]. They are sister companies with [employer] are not able to take the patient due to noncompliance issues and the patient still having one of their pumps. Spoke to Zuleika at [facility]. Faxed prescription and demos, awaiting return call to see if they are able to accept the patient.
--- NOTE | 2020-02-07 14:54 | NUR ---
Received call from Zuleika at [facility]. They are not able to take the patient due to her insurance is out of network. She states she has some kind of locked insurance. Asked Zuleika if she knew of any other infusion companies and she does not. Placed call to hospitalist nurse director. Awaiting return call.
--- NOTE | 2020-02-07 15:49 | NUR ---
Spoke to Dr. Yan regarding home IV antibiotics. Informed DrJosias no IV infusion company will take the patient due to her noncompliance or being out of network with her insurance. was unaware patient was discharged to home with no IVs. will look over micro reports and let CM know tomorrow what antibiotic she will need. Patient will need to come into the hospital for the IVs. It will either be Daptomycin or Invanz. Notified hospitalist nurse director.
--- NOTE | 2020-02-07 15:55 | NUR ---
Notified Alek at [facility] of the possibility of the patient now coming into the facility for her IV antibiotics. Awaiting to hear back from Dr. Yan.
== END 2020-02-03 19:10 | disposition home or self-care (01) | DRG 314 ==
LOC: ED 17:45 → 5E 19:30 → EDHOLD 19:30 → 5E 19:47
PROVIDERS: Emergency Medicine; Podiatrist; Student in an Organized Health Care Education/Training Program; ADMIT Family Medicine
PROC: 0QBM0ZZ Excision of Left Tarsal, Open Approach (ICD-10-PCS; principal; 2020-02-01)
PROC: 0QBL0ZZ Excision of Right Tarsal, Open Approach (ICD-10-PCS; 2020-02-01)
PROC: 0QBM0ZX Excision of Left Tarsal, Open Approach, Diagnostic (ICD-10-PCS; 2020-02-01)
PROC: 0QBL0ZX Excision of Right Tarsal, Open Approach, Diagnostic (ICD-10-PCS; 2020-02-01)
PROC: 02HV33Z Insertion of Infusion Device into Superior Vena Cava, Percutaneous Approach (ICD-10-PCS; 2020-02-02)
DX: E11.69 Type 2 diabetes mellitus with other specified complication (principal); F41.9 Anxiety disorder, unspecified; I10 Essential (primary) hypertension; L89.159 Pressure ulcer of sacral region, unspecified stage; M79.2 Neuralgia and neuritis, unspecified; L89.619 Pressure ulcer of right heel, unspecified stage; D72.810 Lymphocytopenia; N39.0 Urinary tract infection, site not specified; R31.9 Hematuria, unspecified; E86.0 Dehydration; N17.0 Acute kidney failure with tubular necrosis; T14.8XXA Other injury of unspecified body region, initial encounter; L89.629 Pressure ulcer of left heel, unspecified stage; M54.5 Low back pain; M86.8X7 Other osteomyelitis, ankle and foot; E11.51 Type 2 diabetes mellitus with diabetic peripheral angiopathy without gangrene; E66.9 Obesity, unspecified; N80.9 Endometriosis, unspecified; K21.9 Gastro-esophageal reflux disease without esophagitis; J45.909 Unspecified asthma, uncomplicated; F32.9 Major depressive disorder, single episode, unspecified; E11.621 Type 2 diabetes mellitus with foot ulcer; L89.153 Pressure ulcer of sacral region, stage 3; E44.0 Moderate protein-calorie malnutrition; F17.210 Nicotine dependence, cigarettes, uncomplicated; J44.9 Chronic obstructive pulmonary disease, unspecified; E11.42 Type 2 diabetes mellitus with diabetic polyneuropathy; D64.9 Anemia, unspecified; L97.519 Non-pressure chronic ulcer of other part of right foot with unspecified severity; E55.9 Vitamin D deficiency, unspecified; E11.65 Type 2 diabetes mellitus with hyperglycemia; Z86.718 Personal history of other venous thrombosis and embolism; Z71.6 Tobacco abuse counseling; Z79.4 Long term (current) use of insulin; Z88.1 Allergy status to other antibiotic agents; Z88.8 Allergy status to other drugs, medicaments and biological substances; Z90.710 Acquired absence of both cervix and uterus; Z90.49 Acquired absence of other specified parts of digestive tract; Z82.49 Family history of ischemic heart disease and other diseases of the circulatory system; Z83.3 Family history of diabetes mellitus; Z80.9 Family history of malignant neoplasm, unspecified; Z68.31 Body mass index [BMI] 31.0-31.9, adult

== ENCOUNTER → 2020-04-27 | Outpatient (CLI) | payer OTHER ==
[~2020-04-27] MED LIST changes: +GLIPIZIDE5 MG PO; +ZOSYN 3.373.375 GM/1 IV
[2020-04-27 16:41] LABS: BASO # 0.1 10*3/uL (0.0-0.1); BASO % 0.5 % (0.0-1.0); EOS # 0.4 10*3/uL (0.0-0.4); EOS % 4.2 % (1.0-4.0); HEMATOCRIT 31.5 % (37.0-47.0); LYMPH # 2.2 10*3/uL (1.3-4.4); LYMPH % 23.5 % (27.0-41.0); MEAN CORPUSCULAR HGB CONC 30.5 g/dl (33.0-37.0); MEAN PLATELET VOLUME 8.9 fl (9.6-12.3); MONO # 0.5 10*3/uL (0.1-1.0); MONO % 4.7 % (3.0-9.0); NEUT # 6.3 10*3/uL (2.3-7.9); NEUT % 66.6 % (47.0-73.0); PLATELET COUNT AUTOMATED 336 10*3/uL (130-400); RED BLOOD COUNT 3.84 10*6/uL (4.10-5.10); RED CELL DISTRI WIDTH 17.7 % (0-14.5); WHITE BLOOD COUNT 9.5 10*3/uL (4.8-10.8)
[2020-04-27 16:57] LABS: ALBUMIN 2.6 gm/dl (3.1-4.5); ALKALINE PHOSPHATASE 251 U/L (45-117); BUN 11 mg/dl (7-24); CHLORIDE 104 mmol/L (98-107); CREATININE 0.83 mg/dL (0.55-1.02); POTASSIUM 4.1 mmol/L (3.5-5.1); SGOT/AST 8 IU/L (3-35); SGPT/ALT 13 U/L (12-78); SODIUM 139 mmol/L (136-145); TOTAL PROTEIN 7.2 gm/dL (6.4-8.2)
== END | disposition home or self-care (01) ==
LOC: LAB 16:19
PROVIDERS: Family Medicine
DX: Z01.818 Encounter for other preprocedural examination (principal); M86.9 Osteomyelitis, unspecified; R06.2 Wheezing

== ENCOUNTER 2020-10-24 18:08 | Inpatient (IN) | payer OTHER ==
[~2020-10-24] VITALS: Ht 154.9 cm; Wt 78.1 kg
[2020-10-24 18:18] VITALS: BP 146/78
[2020-10-24 19:56] LABS: BASO # 0.1 10*3/uL (0.0-0.1); BASO % 0.3 % (0.0-1.0); EOS % 0.1 % (1.0-4.0); LYMPH # 1.1 10*3/uL (1.3-4.4); MEAN CELL VOLUME 76.4 fl (81.0-99.0); MEAN CORPUSCULAR HGB 23.1 pg (27.0-31.0); MEAN CORPUSCULAR HGB CONC 30.3 g/dl (33.0-37.0); MEAN PLATELET VOLUME 9.7 fl (9.6-12.3); MONO # 0.7 10*3/uL (0.1-1.0); MONO % 4.6 % (3.0-9.0); NEUT # 13.4 10*3/uL (2.3-7.9); NEUT % 87.7 % (47.0-73.0); PLATELET COUNT AUTOMATED 317 10*3/uL (130-400); RED BLOOD COUNT 4.32 10*6/uL (4.10-5.10); RED CELL DISTRI WIDTH 15.8 % (0-14.5); WHITE BLOOD COUNT 15.2 10*3/uL (4.8-10.8)
[2020-10-24 20:06] VITALS: BP 137/84
[2020-10-24 20:07] LABS: ACT PARTIAL THROMBO TIME 27.5 SECONDS (20.0-32.1)
[2020-10-24 20:16] LABS: ALBUMIN 3.1 gm/dl (3.1-4.5); ALKALINE PHOSPHATASE 347 U/L (45-117); BUN 16 mg/dl (7-24); CHLORIDE 93 mmol/L (98-107); CREATININE 1.56 mg/dL (0.55-1.02); SGOT/AST 7 IU/L (3-35); SGPT/ALT 19 U/L (12-78); SODIUM 126 mmol/L (136-145); TOTAL PROTEIN 7.9 gm/dL (6.4-8.2)
[2020-10-24 20:38] LABS: B-hCG (QUALITATIVE) BORDERLINE (NEGATIVE)
[2020-10-24 22:11] VITALS: BP 132/78
[2020-10-24 22:45] LABS: BILIRUBIN Negative (Negative); BLOOD 2+ (Negative); CLARITY Clear (Clear); COLOR Yellow (Yellow); GLUCOSE 3+ (Negative); KETONE Negative (Negative); LEUKO ESTERASE 1+ (Negative); NITRITE Positive (Negative); UROBILINOGEN 0.2 E.U./dl (0.0-1.0)
[2020-10-24 23:12] LABS: BACTERIA 2+; RBC 16-20 rbc/hpf (0-2)
[2020-10-25] VITALS (7 sets, daily range): BP systolic 126–148; BP diastolic 69–87
[2020-10-25 02:58] LABS: BUN 12 mg/dl (7-24); CHLORIDE 99 mmol/L (98-107); CREATININE 1.14 mg/dL (0.55-1.02); POTASSIUM 3.9 mmol/L (3.5-5.1); SODIUM 135 mmol/L (136-145)
--- NOTE | 2020-10-25 03:20 | NUR ---
A 50, admitted to 4E, under the services of ALEXANDER Fisher DO with a diagnosis of UTI/HYPERGLYCEMIA/SEVERE SEPSIS/ MULTIFOCAL PNUEMONIA. Chief complaint is BACK PAIN/VOMITING. Patient arrived via stretcher from ER. Monitor applied. Initial assessment completed. Vital signs taken and recorded. ALEXANDER FISHER DO notified of admission to the unit. Orders received. See assessment for past medical history, medications and allergies. Patient and/or family oriented to unit. visitation policy reviewed. Clothing/patient valuable form completed. MARY RIGGS
[2020-10-25] MEDS ORDERED: OXYCONTIN20 M1 PO (03:55)
--- NOTE | 2020-10-25 04:48 | NUR ---
DR. KLEIN AWARE MED REC IS DONE AND MEWS SCORE OF 4. NO ORDERS RECIEVED AT THIS TIME.
--- NOTE | 2020-10-25 05:55 | NUR ---
PT RESTING IN BED. C/O NAUSEA AND BACK PAIN. RATES PAIN 8 ON PAIN SCALE 0-10. MEDICATED WITH MORPHINE IV PER PRN ORDER SEE EMAR. ALSO ZOFRAN IV PER PRN ORDER, SEE EMAR. [id number], SEE EMAR.
--- NOTE | 2020-10-25 06:01 | NUR ---
DR. KLEIN CONTACTED FOR PATIENT C/O PAIN RATING A 10/10 AND NAUSEA. WILL TAKE A LOOK AT HOME MEDICATIONS AND OK TO GIVE ZOFRAN EARLY.
--- NOTE | 2020-10-25 06:50 | NUR ---
RESTING IN BED WITH EYES CLOSED. RESP-EASY AND REGULAR. MEDICATION SEEMS TO BE EFFECTIVE. CALL LIGHT IN REACH.
[2020-10-25 09:22] LABS: VITAMIN D, 25-HYDROXY 8.7 ng/mL (30-100)
[2020-10-25 13:41] LABS: ABG BASE EXCESS 7.7 mmol/L (-2.0-2.0); ARTERIAL BLOOD GAS PH 7.393 (7.35-7.45)
--- NOTE | 2020-10-25 13:57 | NUR ---
DR JOHN CALLED WITH CONSULT, REVIEWED LABS AND ABG. ORDERS RECEIVED.
--- NOTE | 2020-10-25 14:16 | NUR ---
PT REQUESTED AND WAS MEDICATED WITH OXYCODONE FOR C/O BACK PAIN. CALL LIGHT IN REACH. WILL MONITOR
--- NOTE | 2020-10-25 14:19 | NUR ---
PT REQUESTED AND WAS MEDICATED WITH ZOFRAN IV FOR C/O NAUSEA. CALL LIGHT IN REACH. WILL MONITOR
--- NOTE | 2020-10-25 19:00 | NUR ---
REPORT RECEIVED. PT LYING IN BED. NO COMPLAINTS. CALL LIGHT IN REACH
--- NOTE | 2020-10-25 21:37 | NUR ---
OXY GIVEN SCHEDULED PER ORDER. WILL MONITOR FOR EFFECTIVENESS
--- NOTE | 2020-10-25 22:37 | NUR ---
PT STATES THAT PAIN MEDICATION HELPED PAIN A LITTLE BIT
--- NOTE | 2020-10-25 23:14 | NUR ---
DR. KLEIN NOTIFIED OF PT REQUEST FOR DILAUDID. ALSO NOTIFIED OF MEYERS LEAKING AND NEED FOR NEW. ORDER FOR NEW MEYERS RECEIVED.
[2020-10-26] VITALS: BP 143/80
[2020-10-26 06:48] LABS: ALBUMIN 2.7 gm/dl (3.1-4.5); CREATININE 1.31 mg/dL (0.55-1.02); POTASSIUM 4.7 mmol/L (3.5-5.1); TOTAL PROTEIN 7.5 gm/dL (6.4-8.2)
--- NOTE | 2020-10-26 06:50 | NUR ---
CRITICAL BS CALLED TO DR. KLEIN 544. ORDERED TO GIVE SLIDING SCALE COVERAGE. RECHECK IN 1 HR.
[2020-10-26 06:51] LABS: BASO % 0.2 % (0.0-1.0); HEMATOCRIT 32.8 % (37.0-47.0); LYMPH # 0.7 10*3/uL (1.3-4.4); LYMPH % 8.2 % (27.0-41.0); MEAN CORPUSCULAR HGB 23.4 pg (27.0-31.0); MEAN CORPUSCULAR HGB CONC 29.6 g/dl (33.0-37.0); MONO # 0.1 10*3/uL (0.1-1.0); MONO % 1.1 % (3.0-9.0); NEUT # 7.9 10*3/uL (2.3-7.9); NEUT % 89.7 % (47.0-73.0); PLATELET COUNT AUTOMATED 264 10*3/uL (130-400); RED BLOOD COUNT 4.15 10*6/uL (4.10-5.10); RED CELL DISTRI WIDTH 16.1 % (0-14.5); WHITE BLOOD COUNT 8.8 10*3/uL (4.8-10.8)
[2020-10-26 07:15] LABS: ABG BASE EXCESS 5.5 mmol/L (-2.0-2.0); ARTERIAL BLOOD GAS PH 7.368 (7.35-7.45)
[2020-10-26 08:00] VITALS: BP 143/76
--- NOTE | 2020-10-26 10:18 | NUR ---
Patient is a 50 y/o F admitted with nausea, vomiting possible UTI. Nursing screen received and chart was reviewed. Patient has a past medical history of poorly controled DM, COPD, bed bound, chronic pressure ulcers and CAD. If pateint has declined in functinoal status with ADLs, transfers, or functional mobility please send OT orders. Thank you. Mercy Haines OTR/L
--- NOTE | 2020-10-26 11:59 | NUR ---
SPEECH THERAPY Nursing screen complete. Patient is recommended formal dysphagia evaluation due to medical history including recurrent PNA, GI deficits, and previous reports for diffiuclty with swallowing. Please send orders for speech theapy dysphagia evaluaiton. Thank you. Mirlande Whiting MA CCC-EMBALMER ASSISTANT
[2020-10-26 12:00] VITALS: BP 141/70
--- NOTE | 2020-10-26 12:14 | NUR ---
NOTIFIED OF BSG 460. ORDERED TO GIVE SLIDING SCALE AND RECHECK IN 1HR. NO NEED FOR GLUCOSE REFLEX AT THIS TIME.
[2020-10-26 16:00] VITALS: BP 121/61
--- NOTE | 2020-10-26 18:25 | NUR ---
PATIENT LEFT AMA, IV REMOVED, TELEMETRY ACCOUNTED FOR, PERSONAL ITEMS RETURNED, TAKEN OUT VIA W/C. EUGENIO GUADARRAMA
== END 2020-10-26 18:25 | disposition left against medical advice (07) | DRG 720 ==
LOC: ED 18:08 → EDHOLD 10-25 02:01 → 4E 10-25 02:26
PROVIDERS: Internal Medicine; Internal Medicine Critical Care Medicine; ADMIT Internal Medicine; ATTEND Internal Medicine
DX: A41.9 Sepsis, unspecified organism (principal); E11.65 Type 2 diabetes mellitus with hyperglycemia; J18.9 Pneumonia, unspecified organism; J44.0 Chronic obstructive pulmonary disease with (acute) lower respiratory infection; I82.509 Chronic embolism and thrombosis of unspecified deep veins of unspecified lower extremity; N39.0 Urinary tract infection, site not specified; R31.9 Hematuria, unspecified; F17.210 Nicotine dependence, cigarettes, uncomplicated; R65.20 Severe sepsis without septic shock; E87.1 Hypo-osmolality and hyponatremia; E87.8 Other disorders of electrolyte and fluid balance, not elsewhere classified; R74.8 Abnormal levels of other serum enzymes; E87.2 Acidosis; R79.82 Elevated C-reactive protein (CRP); N17.0 Acute kidney failure with tubular necrosis; F32.9 Major depressive disorder, single episode, unspecified; K21.9 Gastro-esophageal reflux disease without esophagitis; E66.9 Obesity, unspecified; M86.60 Other chronic osteomyelitis, unspecified site; E11.69 Type 2 diabetes mellitus with other specified complication; E11.51 Type 2 diabetes mellitus with diabetic peripheral angiopathy without gangrene; M54.9 Dorsalgia, unspecified; G89.29 Other chronic pain; Z68.32 Body mass index [BMI] 32.0-32.9, adult; Z71.6 Tobacco abuse counseling; Z90.49 Acquired absence of other specified parts of digestive tract; Z88.8 Allergy status to other drugs, medicaments and biological substances; Z88.1 Allergy status to other antibiotic agents; Z79.01 Long term (current) use of anticoagulants; Z79.899 Other long term (current) drug therapy; F41.1 Generalized anxiety disorder; Z79.4 Long term (current) use of insulin; Z90.710 Acquired absence of both cervix and uterus; Z53.29 Procedure and treatment not carried out because of patient's decision for other reasons; Z20.828 Contact with and (suspected) exposure to other viral communicable diseases; J96.00 Acute respiratory failure, unspecified whether with hypoxia or hypercapnia